=== PATIENT | female | born 1960 | race Caucasian/White ===

== ENCOUNTER 2016-05-30 21:20 | Emergency (ER) | payer OTHER ==
[~2016-05-30] VITALS: Ht 167.6 cm; Wt 85.7 kg
[~2016-05-30 21:20] MED LIST: ACETAMINOPHEN; AMLODIPINE BES2.5 M1; ASPIRIN81 M1 PO; ATROVENT HFA12.5 GM; BENAZEPRIL HYDR20 M1; CETIRIZINE HCL10 MG PO; CHOLESTEROL MEDS; CLARITIN10 MG PO; CODEINE; COLACE100 M1 PO; DITROPAN5 M1; DITROPAN5 MG PO; HYDROCODONE; LORAZEPAM1 M1 PO; LOTENSIN10 MG PO; LOW DOSE ASPIRI81 MG PO; MOBIC15 MG PO; NORCO 10/325 MG1 TAB PO; OMEPRAZOLE DR20 M1 PO; OXYBUTYNIN5 M1 PO; PEPCID20 MG PO; PRILOSEC40 MG PO; PROMETHAZINE; PROZAC20 MG PO; QVAR HFA M80 MCG/ACT PO; RANITIDINE150 M1 PO; RISPERDAL0.25 MG PO; SERTRALINE HYDR50 M1 PO; TRIAMCINOL; VICODIN-ES1 TAB PO; VITAMIN D50000 I2; ZOCOR20 MG PO; [UNRECOGNIZED DRUG - CODE] PO; [UNRECOGNIZED DRUG - REMARK]
[2016-05-30 21:22] VITALS: BP 145/80
--- NOTE | 2016-05-30 21:29 | NUR ---
AMBULATED TO ER BED 6
--- NOTE | 2016-05-30 21:44 | NUR ---
Patient being evaluated by physician at bedside.
[2016-05-30] MEDS ORDERED: DIAZEPAM 5 MG TAB PO ONE (21:50)
[2016-05-30] MEDS ORDERED: KETOROLAC 30 MG/ML VIAL IM ONE (21:50)
--- NOTE | 2016-05-30 21:51 | NUR ---
PATIENT PRESENTS TO ED WITH rt sided pain, generalized pain, 10/10 . PT DENIES N/V/D; SKIN IS PINK/WARM/DRY; AAOX4 WITH EVEN AND STEADY GAIT; LUNGS CLEAR BL; HR EVEN AND REGULAR; PT DENIES ANY FEVER, CP, SOB, OR COUGH AT THIS TIME; PATIENT STATES PAIN OF 10/10 AT THIS TIME; VSS; PATIENT POSITIONED FOR COMFORT; HOB ELEVATED; BEDRAILS UP X2; BED DOWN. ER MD MADE AWARE OF PT STATUS.
--- NOTE | 2016-05-30 22:03 | NUR ---
pt to xray via wc in stable condition
--- NOTE | 2016-05-30 22:22 | NUR ---
PT RETURNED FROM CT IN STABLE CONDITION
--- NOTE | 2016-05-30 22:53 | NUR ---
Patient discharged with v/s stable. Written and verbal after care instructions given and explained. Patient alert, oriented and verbalized understanding of instructions. Ambulatory with steady gait. All questions addressed prior to discharge. ID band removed. Patient advised to follow up with PMD. Rx of NAPROSYN AND VALIUM given. Patient educated on indication of medication including possible reaction and side effects. Opportunity to ask questions provided and answered.
[2016-05-30 22:54] VITALS: BP 139/76
== END 2016-05-30 22:54 | disposition home or self-care (01) ==
LOC: MED 21:20
DX: S46.811A Strain of other muscles, fascia and tendons at shoulder and upper arm level, right arm, initial encounter (principal); J45.909 Unspecified asthma, uncomplicated; K21.9 Gastro-esophageal reflux disease without esophagitis; I11.0 Hypertensive heart disease with heart failure; M19.90 Unspecified osteoarthritis, unspecified site; I50.9 Heart failure, unspecified; Z79.899 Other long term (current) drug therapy; Z98.890 Other specified postprocedural states; W18.39XA Other fall on same level, initial encounter; Y93.89 Activity, other specified; Y92.89 Other specified places as the place of occurrence of the external cause; Y99.8 Other external cause status
CPT/HCPCS: 73030; 96372; 99284; J1885

== ENCOUNTER 2016-08-01 23:10 | Emergency (ER) | payer OTHER ==
[~2016-08-01] VITALS: Ht 165.1 cm; Wt 84.4 kg
[2016-08-01 23:15] VITALS: BP 131/88
--- NOTE | 2016-08-01 23:42 | NUR ---
PT TAKEN TO OF Addendum: 08/01/16 at 2350 by EMELI PT TAKEN TO [facility]
--- NOTE | 2016-08-02 00:10 | NUR ---
Dr. Chambers evaluating patient
[2016-08-02 00:30] VITALS: BP 127/75
--- NOTE | 2016-08-02 00:30 | NUR ---
Patient discharged with v/s stable. Written and verbal after care instructions given and explained. Patient alert, oriented and verbalized understanding of instructions. Ambulatory with steady gait. All questions addressed prior to discharge. ID band removed. Patient advised to follow up with PMD. Rx of Acyclovir given. Patient educated on indication of medication including possible reaction and side effects. Opportunity to ask questions provided and answered.
== END 2016-08-02 00:30 | disposition home or self-care (01) ==
LOC: MED 23:10
DX: B00.1 Herpesviral vesicular dermatitis (principal); M54.5 Low back pain; G89.29 Other chronic pain; J45.909 Unspecified asthma, uncomplicated; I50.9 Heart failure, unspecified; K21.9 Gastro-esophageal reflux disease without esophagitis; I10 Essential (primary) hypertension; F41.9 Anxiety disorder, unspecified; Z87.891 Personal history of nicotine dependence

== ENCOUNTER 2016-08-07 04:30 | Emergency (ER) | payer OTHER ==
[~2016-08-07] VITALS: Ht 165.1 cm; Wt 75.7 kg
[~2016-08-07 04:30] MED LIST changes: -ACETAMINOPHEN; -AMLODIPINE BES2.5 M1; +ASPI81EC PO; -ASPIRIN81 M1 PO; -ATROVENT HFA12.5 GM; +BECL0.089 PO; +BENA20TA5; -BENAZEPRIL HYDR20 M1; -CETIRIZINE HCL10 MG PO; -CHOLESTEROL MEDS; -CLARITIN10 MG PO; -CODEINE; -COLACE100 M1 PO; -DITROPAN5 M1; -DITROPAN5 MG PO; +DOCU-67 PO; +HYDR-4452 PO; -HYDROCODONE; +LORA1TAB7 PO; -LORAZEPAM1 M1 PO; -LOTENSIN10 MG PO; -LOW DOSE ASPIRI81 MG PO; +MELO15TA11 PO; -MOBIC15 MG PO; -NORCO 10/325 MG1 TAB PO; +OMEP20EC6 PO; -OMEPRAZOLE DR20 M1 PO; -OXYBUTYNIN5 M1 PO; -PEPCID20 MG PO; -PRILOSEC40 MG PO; -PROMETHAZINE; -PROZAC20 MG PO; -QVAR HFA M80 MCG/ACT PO; +RANI150T8 PO; -RANITIDINE150 M1 PO; +RISP0.251 PO; -RISPERDAL0.25 MG PO; +SERT50TA PO; -SERTRALINE HYDR50 M1 PO; -TRIAMCINOL; -VICODIN-ES1 TAB PO; -VITAMIN D50000 I2; -ZOCOR20 MG PO; +[UNRECOGNIZED DRUG - CODE] PO; +[UNRECOGNIZED DRUG - CODE] PO; -[UNRECOGNIZED DRUG - CODE] PO; -[UNRECOGNIZED DRUG - REMARK]
[2016-08-07 04:33] VITALS: BP 144/87
--- NOTE | 2016-08-07 04:42 | NUR ---
PT TAKEN TO BED 5
--- NOTE | 2016-08-07 04:50 | NUR ---
Dr. Roth evaluating patient at bedside.
--- NOTE | 2016-08-07 04:57 | NUR ---
55Y/F PATIENT PRESENTS TO ED WITH C/O BODY ACHE. PT STATES FELL AND ROLL, ALL BODY ACHING, NO LOC, NO APPARENT INJURY . DENIES N/V/D; SKIN IS PINK/WARM/DRY; AAOX4 WITH EVEN AND STEADY GAIT; LUNGS CLEAR BL; HR EVEN AND REGULAR; PT DENIES ANY FEVER, CP, SOB, OR COUGH AT THIS TIME; PATIENT STATES PAIN OF 10/10 AT THIS TIME; VSS; PATIENT POSITIONED FOR COMFORT; HOB ELEVATED; BEDRAILS UP X2; BED DOWN. ER MD MADE AWARE OF PT STATUS.
[2016-08-07 05:12] VITALS: BP 137/82
--- NOTE | 2016-08-07 05:12 | NUR ---
Patient discharged with v/s stable. Written and verbal after care instructions given and explained. Patient verbalized understanding. Ambulatory with steady gait. All questions addressed prior to discharge. Advised to follow up with PMD.
== END 2016-08-07 05:12 | disposition home or self-care (01) ==
LOC: MED 04:30
DX: S09.90XA Unspecified injury of head, initial encounter (principal); F17.210 Nicotine dependence, cigarettes, uncomplicated; J45.909 Unspecified asthma, uncomplicated; K21.9 Gastro-esophageal reflux disease without esophagitis; I50.9 Heart failure, unspecified; I11.0 Hypertensive heart disease with heart failure; W01.0XXA Fall on same level from slipping, tripping and stumbling without subsequent striking against object, initial encounter; Y93.89 Activity, other specified; Y92.833 Campsite as the place of occurrence of the external cause; Y99.8 Other external cause status
CPT/HCPCS: 99283

== ENCOUNTER 2016-08-16 07:18 | Emergency (ER) | payer OTHER ==
[~2016-08-16] VITALS: Ht 167.6 cm; Wt 84.4 kg
[2016-08-16 07:30] VITALS: BP 134/92
--- NOTE | 2016-08-16 07:33 | NUR ---
Patient ambulated to bed 7. RN evaluating patient at bedside.
--- NOTE | 2016-08-16 07:34 | NUR ---
55/F BIB SELF C/O LOBO FOOT PAIN R/T BLISTERS X2 WEEKS DENIES N/V/D; BOTH FOOT SWELLING & BLISTER NOTED AT THIS TIME. AAOX4 WITH EVEN AND UNSTEADY GAIT; LUNGS CLEAR BL; HR EVEN AND REGULAR; PT DENIES ANY FEVER, CP, SOB, OR COUGH AT THIS TIME; PATIENT STATES PAIN OF 10/10 AT THIS TIME; VSS; PATIENT POSITIONED FOR COMFORT; HOB ELEVATED; BEDRAILS UP X2; BED DOWN. ER MD MADE AWARE OF PT STATUS.
[2016-08-16] MEDS ORDERED: NEOMYCIN/POLYMYXIN/BACITRACIN OPTH OINT 3.5 GM TUBE OP SCH (07:45)
[2016-08-16] MEDS ORDERED: NEOMYCIN/POLYMYXIN/BACITRACIN 0.9 GM/1 PKT TP ONE (07:54)
[2016-08-16 08:41] VITALS: BP 114/74
--- NOTE | 2016-08-16 08:41 | NUR ---
Patient discharged with v/s stable. Written and verbal after care instructions given and explained. Patient alert, oriented and verbalized understanding of instructions. Ambulatory with steady gait. All questions addressed prior to discharge. ID band removed. Patient advised to follow up with PMD. Rx of ALEVE& ALBUTEROL given. Patient educated on indication of medication including possible reaction and side effects. Opportunity to ask questions provided and answered.
== END 2016-08-16 08:41 | disposition home or self-care (01) ==
LOC: MED 07:18
DX: S90.821A Blister (nonthermal), right foot, initial encounter (principal); J45.909 Unspecified asthma, uncomplicated; K21.9 Gastro-esophageal reflux disease without esophagitis; I11.0 Hypertensive heart disease with heart failure; I50.9 Heart failure, unspecified; Z79.82 Long term (current) use of aspirin; Z79.899 Other long term (current) drug therapy; X58.XXXA Exposure to other specified factors, initial encounter; Y93.01 Activity, walking, marching and hiking; Y92.89 Other specified places as the place of occurrence of the external cause; Y99.8 Other external cause status
CPT/HCPCS: 99283

== ENCOUNTER 2016-08-16 23:15 | Emergency (ER) | payer OTHER ==
[~2016-08-16] VITALS: Ht 167.6 cm; Wt 84.8 kg
--- NOTE | 2016-08-16 23:15 | NUR ---
BIBA TO ER
[2016-08-16 23:24] VITALS: BP 145/82
--- NOTE | 2016-08-16 23:53 | NUR ---
TO LAURIE FONSECA
[2016-08-16 23:54] LABS: BASOPHILS # (AUTO) 0.3 K/uL (0.00-0.22); BASOPHILS % (AUTO) 3.3 % (0.0-2.0); EOSINOPHILS # (AUTO) 0.4 K/uL (0-0.4); EOSINOPHILS % (AUTO) 4.6 % (0.0-4.0); HEMATOCRIT 36.2 % (36-48); LYMPHOCYTES # (AUTO) 2.6 K/uL (2.5-16.5); LYMPHOCYTES % (AUTO) 33.6 % (20.5-51.1); MEAN CORPUSCULAR HEMOGLOBIN 29 pg (27-31); MEAN CORPUSCULAR HGB CONC 33 g/dL (33-37); MEAN CORPUSCULAR VOLUME 87 fL (80-94); MONOCYTES # (AUTO) 0.7 K/uL (0.8-1.0); MONOCYTES % (AUTO) 9.2 % (1.7-9.3); NEUTROPHILS # (AUTO) 3.6 K/uL (1.8-7.7); NEUTROPHILS % (AUTO) 49.3 % (42.2-75.2); PLATELET COUNT (AUTO) 284 K/uL (140-450); RED BLOOD CELL COUNT(AUTO) 4.15 MIL/uL (4.20-5.40); RED CELL DISTRIBUTION WIDTH 13.1 % (11.6-13.7); WHITE BLOOD COUNT (AUTO) 7.6 K/uL (4.8-10.8)
--- NOTE | 2016-08-16 23:55 | NUR ---
Иван hendricks in [facility] - 08/16/16 at 2357 by MEDDM [id number]
[2016-08-17 00:10] LABS: ALBUMIN 3.9 g/dL (3.4-5.0); ANION GAP 9.4 (8-16); CALCIUM 8.6 mg/dL (8.5-10.1); CARBON DIOXIDE 28.6 mmol/L (21-32); CREATININE 0.8 mg/dL (0.6-1.3); TOTAL BILIRUBIN 0.4 mg/dL (0.0-1.0); TOTAL PROTEIN, SERUM 7.5 g/dL (6.4-8.2)
[2016-08-17 00:18] LABS: INR 1.1 (0.8-1.2); PARTIAL THROMBOPLASTIN TIME 24.7 secs (22-35.6); PROTHROMBIN TIME 10.4 secs (10.8-13.4)
--- NOTE | 2016-08-17 02:17 | NUR ---
BIB WHEELCHAIR TO ER BED 8
[2016-08-17] MEDS ORDERED: POTASSIUM CHLORIDE 10 MEQ TABER PO ONE (02:30)
--- NOTE | 2016-08-17 02:30 | NUR ---
55 YO FEMALE PATIENT PRESENTS TO ED WITH RT FOOT PAIN . DENIES N/V/D; SKIN IS PINK/WARM/DRY; AAOX4 WITH EVEN AND STEADY GAIT; LUNGS CLEAR BL; HR EVEN AND REGULAR; PT DENIES ANY FEVER, CP, SOB, OR COUGH AT THIS TIME; PATIENT STATES PAIN OF 10/10 AT THIS TIME; VSS; PATIENT POSITIONED FOR COMFORT; HOB ELEVATED; BEDRAILS UP X2; BED DOWN. ER MD MADE AWARE OF PT STATUS.
[2016-08-17 05:00] VITALS: BP 145/82
== END 2016-08-17 03:40 | disposition home or self-care (01) ==
LOC: MED 23:15
DX: R60.0 Localized edema (principal); I10 Essential (primary) hypertension; J45.909 Unspecified asthma, uncomplicated; I50.9 Heart failure, unspecified; K21.9 Gastro-esophageal reflux disease without esophagitis; Z88.6 Allergy status to analgesic agent
CPT/HCPCS: 36415; 73630; 80053; 85025; 85610; 85730; 93005; 99285

== ENCOUNTER 2016-11-01 23:25 | Emergency (ER) | payer OTHER ==
[~2016-11-01] VITALS: Ht 165.1 cm; Wt 83.0 kg
[2016-11-01 23:39] VITALS: BP 116/82
--- NOTE | 2016-11-02 00:44 | NUR ---
TO ER OF2
--- NOTE | 2016-11-02 01:00 | NUR ---
Patient being evaluated by physician.
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
--- NOTE | 2016-11-02 01:30 | NUR ---
Patient discharged with v/s stable. Written and verbal after care instructions given and explained. Patient alert, oriented and verbalized understanding of instructions. Ambulatory with steady gait. All questions addressed prior to discharge. ID band removed. Patient advised to follow up with PMD. Rx of LASIX 20 MG given. Patient educated on indication of medication including possible reaction and side effects. Opportunity to ask questions provided and answered.
[2016-11-02 01:31] VITALS: BP 125/76
== END 2016-11-02 01:30 | disposition home or self-care (01) ==
LOC: MED 23:25
DX: R60.0 Localized edema (principal); J45.909 Unspecified asthma, uncomplicated; I50.9 Heart failure, unspecified; K21.9 Gastro-esophageal reflux disease without esophagitis; I10 Essential (primary) hypertension; Z79.899 Other long term (current) drug therapy; Z88.5 Allergy status to narcotic agent
CPT/HCPCS: 99283

== ENCOUNTER 2016-11-03 05:25 | Emergency (ER) | payer OTHER ==
[~2016-11-03] VITALS: Ht 167.6 cm; Wt 82.6 kg
[2016-11-03 05:36] VITALS: BP 155/90
--- NOTE | 2016-11-03 05:42 | NUR ---
Patient ambulated to bed 03.
--- NOTE | 2016-11-03 05:45 | NUR ---
PATIENT PRESENTS TO ED WITH BOTH FOOT PAIN ,SWELLING, FOR 8 DAYS . PT DENIES N/V/D; SKIN IS PINK/WARM/DRY; AAOX4 WITH EVEN AND STEADY GAIT; LUNGS CLEAR BL; HR EVEN AND REGULAR; PT DENIES ANY FEVER, CP, SOB, OR COUGH AT THIS TIME; PATIENT STATES PAIN OF 8/10 AT THIS TIME; VSS; PATIENT POSITIONED FOR COMFORT; HOB ELEVATED; BEDRAILS UP X2; BED DOWN. ER MD MADE AWARE OF PT STATUS.
--- NOTE | 2016-11-03 06:00 | NUR ---
Patient being evaluated by physician DR CHEATHAM at bedside.
[2016-11-03 06:45] VITALS: BP 140/87
== END 2016-11-03 06:43 | disposition home or self-care (01) ==
LOC: MED 05:25
DX: R60.0 Localized edema (principal); I11.0 Hypertensive heart disease with heart failure; J45.909 Unspecified asthma, uncomplicated; I50.9 Heart failure, unspecified; K21.9 Gastro-esophageal reflux disease without esophagitis; Z88.6 Allergy status to analgesic agent; Z79.899 Other long term (current) drug therapy
CPT/HCPCS: 99283

== ENCOUNTER 2016-11-05 01:10 | Emergency (ER) | payer OTHER ==
[~2016-11-05] VITALS: Ht 167.6 cm; Wt 82.6 kg
[2016-11-05 01:31] VITALS: BP 161/112
[2016-11-05 02:14] LABS: BASOPHILS # (AUTO) 0.3 K/uL (0.00-0.22); BASOPHILS % (AUTO) 3.3 % (0.0-2.0); EOSINOPHILS # (AUTO) 0.3 K/uL (0-0.4); EOSINOPHILS % (AUTO) 3.3 % (0.0-4.0); HEMATOCRIT 37.3 % (36-48); HEMOGLOBIN 12.3 g/dL (12.0-16.0); LYMPHOCYTES # (AUTO) 2.7 K/uL (2.5-16.5); LYMPHOCYTES % (AUTO) 30.5 % (20.5-51.1); MEAN CORPUSCULAR HEMOGLOBIN 29 pg (27-31); MEAN CORPUSCULAR HGB CONC 33 g/dL (33-37); MEAN CORPUSCULAR VOLUME 88 fL (80-94); MONOCYTES # (AUTO) 0.7 K/uL (0.8-1.0); MONOCYTES % (AUTO) 7.6 % (1.7-9.3); NEUTROPHILS # (AUTO) 4.8 K/uL (1.8-7.7); NEUTROPHILS % (AUTO) 55.3 % (42.2-75.2); PLATELET COUNT (AUTO) 305 K/uL (140-450); RED BLOOD CELL COUNT(AUTO) 4.25 MIL/uL (4.20-5.40); RED CELL DISTRIBUTION WIDTH 13.4 % (11.6-13.7); WHITE BLOOD COUNT (AUTO) 8.8 K/uL (4.8-10.8)
[2016-11-05 02:23] LABS: ANION GAP 9.6 (8-16); CALCIUM 8.8 mg/dL (8.5-10.1); CARBON DIOXIDE 28.2 mmol/L (21-32); CREATININE 0.7 mg/dL (0.6-1.3); POTASSIUM 3.8 mmol/L (3.5-5.1)
[2016-11-05 02:29] LABS: ALBUMIN 3.7 g/dL (3.4-5.0); TOTAL BILIRUBIN 0.3 mg/dL (0.0-1.0); TOTAL PROTEIN, SERUM 7.5 g/dL (6.4-8.2)
[2016-11-05 04:45] VITALS: BP 137/76
== END 2016-11-05 04:45 | disposition home or self-care (01) ==
LOC: MED 01:10
DX: R22.43 Localized swelling, mass and lump, lower limb, bilateral (principal); I11.0 Hypertensive heart disease with heart failure; J45.909 Unspecified asthma, uncomplicated; Y92.89 Other specified places as the place of occurrence of the external cause; K59.00 Constipation, unspecified; M19.90 Unspecified osteoarthritis, unspecified site; T46.5X5A Adverse effect of other antihypertensive drugs, initial encounter; Z79.899 Other long term (current) drug therapy; Z88.5 Allergy status to narcotic agent
CPT/HCPCS: 36415; 71010; 80053; 83880; 85025; 87040; 99285; Q0092

== ENCOUNTER 2017-01-25 10:32 | Emergency (ER) | payer OTHER ==
[~2017-01-25] VITALS: Ht 172.7 cm; Wt 81.6 kg
[~2017-01-25 10:32] MED LIST changes: +ACET-787 PO; +CETI10TA71 PO; +DOCU-299 PO; -DOCU-67 PO; -HYDR-4452 PO; +OXYB5TAB21 PO; -[UNRECOGNIZED DRUG - CODE] PO; -[UNRECOGNIZED DRUG - CODE] PO
--- NOTE | 2017-01-25 10:36 | NUR ---
PT BIBA TO BED 9.
--- NOTE | 2017-01-25 10:37 | NUR ---
56 /F BIBA FROM FIELD FOR GENERAL WEAKNESS. AWAKE AND ALERT ON ARRIVAL.PT STS BACK PAIN & L LEG SWEELING X 3 MO. AAOX4 WITH EVEN AND STEADY GAIT; LUNGS CLEAR BL. PT DENIES ANY FEVER, CP, SOB, OR COUGH AT THIS TIME; PATIENT STATES PAIN OF 5/10 AT THIS TIME; PATIENT POSITIONED FOR COMFORT; HOB ELEVATED; BEDRAILS UP X2; BED DOWN. ER MD MADE AWARE OF PT STATUS.
--- NOTE | 2017-01-25 10:37 | NUR ---
Patient being evaluated by DR ROBISON at bedside.
[2017-01-25 10:38] VITALS: BP 138/100
[2017-01-25] MEDS ORDERED: NACL 0.9% 1,000 ML IV ONE (10:45)
[2017-01-25 11:04] LABS: BARBITURATE, URINE NEG. ng/ml (NEG <=200); BENZODIAZEPINE, URINE NEG. ng/mL (NEG <=200); CANNABINOID, URINE NEG. ng/mL (NEG <=50); COCAINE, URINE NEG. ng/mL (NEG <=300); OPIATE, URINE NEG. ng/mL (NEG <=2000); PHENCYCLIDINE SCREEN,URINE NEG. ng/mL (NEG <=25)
[2017-01-25 11:25] LABS: APPEARANCE,URINE CLEAR (CLEAR); BILIRUBIN,URINE NEGATIVE (NEGATIVE); BLOOD, URINE NEGATIVE (NEGATIVE); COLOR,URINE YELLOW (YELLOW); LEUKOCYTE ESTERASE ,URINE NEGATIVE (NEGATIVE); NITRITE, URINE NEGATIVE (NEGATIVE); UGLUCOSE NEGATIVE (NEGATIVE)
[2017-01-25 13:13] VITALS: BP 128/89
== END 2017-01-25 13:13 | disposition home or self-care (01) ==
LOC: MED 10:32
DX: K59.00 Constipation, unspecified (principal); J45.909 Unspecified asthma, uncomplicated; J44.9 Chronic obstructive pulmonary disease, unspecified; K21.9 Gastro-esophageal reflux disease without esophagitis; I10 Essential (primary) hypertension; Z88.5 Allergy status to narcotic agent; Z90.89 Acquired absence of other organs
CPT/HCPCS: 74176; 80305; 81003; 81025; 96360; 99285; J7030

== ENCOUNTER 2017-01-27 03:00 | Inpatient (IN) | payer OTHER ==
[~2017-01-27] VITALS: Ht 167.6 cm; Wt 85.7 kg
[2017-01-27 03:07] VITALS: BP 109/64
--- NOTE | 2017-01-27 03:14 | NUR ---
PT TAKEN TO BED 8
--- NOTE | 2017-01-27 03:24 | NUR ---
56Y F BIB SELF C/O AB PAIN RADIATING TO THE BACK X 2 WEEK. PT DENIES ANY TRAUMA TO THE AREA. PT STATES SHE WAS WALKING 2-3 MILES EARLIER TODAY AND STATES THE PAIN HAS GOTTEN PROGRESSIVELY WORSE AND STATES SHE HAS BEEN NAUSEATED AND VOMITING. PT STATES PAIN IS SHARP AND BURNING. PT DENIES ANY SOB OR CP AT THE MOMENT. PT IS AAOX4, BREATHING IS EVEN AND UNLABORED. PT AMBULATED TO ER BED WITH STEADY DICKENS.
--- NOTE | 2017-01-27 03:43 | NUR ---
Dr. Obando evaluating patient at bedside.
--- NOTE | 2017-01-27 03:54 | NUR ---
FLEETS ENEMA GIVEN BY LIZY FINCH AT THIS TIME. PATIENT TOLERATED WELL.
--- NOTE | 2017-01-27 05:03 | NUR ---
PT TAKEN TO CT
[2017-01-27] MEDS ORDERED: MORPHINE SULFATE 2 MG/ML SYR IVP PRN (06:05)
[2017-01-27] MEDS ORDERED: ONDANSETRON 4 MG/2 ML VIAL IVP PRN (06:05)
[2017-01-27] MEDS ORDERED: LORazepam 2 MG/ML VIAL IVP PRN (06:05)
[2017-01-27] MEDS ORDERED: NACL 0.9% 1,000 ML IV ONE (06:10)
--- NOTE | 2017-01-27 06:18 | NUR ---
Patient will be admitted to care of DR MCKEON. Admited to MS . Will go to room MS 106B. Belongings list completed. Report to JUDITH MEDEL.
[2017-01-27 06:24] VITALS: BP 123/73
--- NOTE | 2017-01-27 06:24 | NUR ---
Admitted from ER, with chief complaint of ABD PAIN AND LOW BACK PAIN, DX ILEUS. 56 y/o, Female, AOX4, AMBULATORY, ABLE TO VERBALIZE NEEDS, PT RESTING IN BED. PT DENIES CHEST PAIN, SOB OR S/S OF ACUTE DISTRESS. PT C/O LOWER ABD PAIN THAT RADIATES TO BACK. PT REPORTS HAVING BM YESTERDAY. IV ACCESS ASYMPTOMATIC, PATENT AND INTACT. NS BOLUS FROM ER IS STILL RUNNING. DISCUSSED AND REVIEWED PLAN OF CARE WITH PT. PT VERBALIZE UNDERSTANDING. oriented to call light, bed, phone,television, bathroom, smoking policy, visiting hours, procedures, ID bracelet on. Belongings list checked. ALL NEEDS MET. SAFETY MEASURES ENSURED. CALL LIGHT WITHIN REACH. WILL CONTINUE TO MONITOR. WILL ENDORSE TO AM NURSE TO FINISH ADMISSION PROCESS.
[2017-01-27 06:26] LABS: BILIRUBIN,URINE NEGATIVE (NEGATIVE); BLOOD, URINE NEGATIVE (NEGATIVE); COLOR,URINE YELLOW (YELLOW); LEUKOCYTE ESTERASE ,URINE NEGATIVE (NEGATIVE); NITRITE, URINE NEGATIVE (NEGATIVE); PH,URINE 5.5 (5.0-9.0); UGLUCOSE NEGATIVE (NEGATIVE)
[2017-01-27 06:27] LABS: BASOPHILS # (AUTO) 0.2 K/uL (0.00-0.22); BASOPHILS % (AUTO) 2.3 % (0.0-2.0); EOSINOPHILS # (AUTO) 0.1 K/uL (0-0.4); EOSINOPHILS % (AUTO) 1.5 % (0.0-4.0); HEMATOCRIT 40.9 % (36-48); HEMOGLOBIN 13.2 g/dL (12.0-16.0); LYMPHOCYTES # (AUTO) 2.2 K/uL (2.5-16.5); LYMPHOCYTES % (AUTO) 23.3 % (20.5-51.1); MEAN CORPUSCULAR HEMOGLOBIN 28 pg (27-31); MEAN CORPUSCULAR HGB CONC 32 g/dL (33-37); MEAN CORPUSCULAR VOLUME 86 fL (80-94); MONOCYTES # (AUTO) 0.8 K/uL (0.8-1.0); MONOCYTES % (AUTO) 8.3 % (1.7-9.3); NEUTROPHILS % (AUTO) 64.6 % (42.2-75.2); PLATELET COUNT (AUTO) 336 K/uL (140-450); RED BLOOD CELL COUNT(AUTO) 4.76 MIL/uL (4.20-5.40); RED CELL DISTRIBUTION WIDTH 13.5 % (11.6-13.7); WHITE BLOOD COUNT (AUTO) 9.3 K/uL (4.8-10.8)
[2017-01-27] MEDS: NACL 0.9% 1,000 ML IV SCH ×3 (06:40→16:03)
[2017-01-27 06:53] LABS: ANION GAP 11.9 (8-16); CARBON DIOXIDE 30.7 mmol/L (21-32); CREATININE 0.7 mg/dL (0.6-1.3); POTASSIUM 3.6 mmol/L (3.5-5.1)
[2017-01-27] MEDS ORDERED: DEXTROSE 50% 50 ML SYR IVP ONE (06:54)
[2017-01-27 07:00] LABS: ALBUMIN 4.2 g/dL (3.4-5.0); TOTAL BILIRUBIN 0.5 mg/dL (0.0-1.0)
--- NOTE | 2017-01-27 07:15 | NUR ---
ENDORSED PLAN OF CARE TO AM NURSE. CONDITION STABLE.
--- NOTE | 2017-01-27 07:16 | NUR ---
RECEIVED PT FROM THE COLLECTION ANALYST NURSE AT BEDSIDE FOR CONTINUITY OF CARE. PT IS AWAKE AND ALERT AND ORIENTED. INTRODUCED MYSELF AND UPDATED THE BOARD. PT IS C/O SOME ABD PAIN, BACK PAIN, AND KNEE PAIN. PT'S SKIN IS INTACT. PT IS AMBULATORY. LAST BM YESTERDAY. IV ON R AC 20G AT NS BOLUS, JUST FINISHING UP. SWITCHED OVER TO 100ML/HR. PT REQUESTING PNA VAC AT D/C. WILL CONTINUE WITH ADMISSION.
[2017-01-27 07:59] LABS: APPEARANCE,URINE SLIGHTLY HAZY (CLEAR)
[2017-01-27 08:00] VITALS: BP 114/80
[2017-01-27 08:00] LABS: RBC,URINE NONE SEEN /HPF (0-5); WBC,URINE 0-5 (RARE) /HPF (0-5)
--- NOTE | 2017-01-27 08:00 | NUR ---
V/S WITHIN NORMAL RANGE. ASSISTED PT TO AMBULATE TO THE BATHROOM. PT NOW BACK IN BED. C/O BEING COLD, GOT HER A WARM BLANKET. MET ALL NEEDS AT THIS TIME. WILL CONTINUE TO MONITOR PT.
--- NOTE | 2017-01-27 08:16 | NUR ---
XRAY HERE TO TAKE PT FOR HER LUMBAR SERIES. DISCONNECTED IV. PT WHEELED OUT IN WHEEL CHAIR.
--- NOTE | 2017-01-27 08:17 | NUR ---
CM NOTE INITIAL REVIEW FAXED TO [facility] [phone] SLIM ESCALANTEA # [phone]
--- NOTE | 2017-01-27 08:33 | NUR ---
PT RETURNED FROM CXRAY.
[2017-01-27] MEDS ORDERED: PANTOPRAZOLE 40 MG TABEC PO SCH (08:55)
[2017-01-27] MEDS ORDERED: ENOXAPARIN 40 MG/0.4 ML SYR SUBQ SCH (09:00)
[2017-01-27] MEDS ORDERED: DOCUSATE SODIUM 100 MG GELCAP PO SCH (09:00)
--- NOTE | 2017-01-27 09:00 | NUR ---
DR PERRY HERE AND SAW PT. PER , PT CAN GO HOME LATER IN THE DAY ONCE SHE TOLERATES FOOD AND HAS A BM AND AMBULATING WELL.
--- NOTE | 2017-01-27 09:09 | NUR ---
ADMINISTERED MORNING MEDS. PT TOLERATED. RECONNECTED THE IVF. WILL CONTINUE TO MONITOR PT.
--- NOTE | 2017-01-27 10:55 | NUR ---
PT RESTING COMFORTABLY. NO SIGNS OF DISTRESS. WILL CONTINUE TO MONITOR PT.
--- NOTE | 2017-01-27 12:00 | NUR ---
SPOKE TO PT RE D/C AND TRANSPORTATION. SHE STATES THAT HER DAUGHTER WILL BE HERE BETWEEN 3-4 PM. WILL ORGANIZE THE D/C AROUND THAT TIME.
--- NOTE | 2017-01-27 14:58 | NUR ---
PT TRYING TO GET A HOLD OF DAUGHTER TO PICK HER UP. NOT SUCCESSFUL. SPOKE TO SON, NOT ABLE TO PICK HER UP. SPOKE TO OTHER DAUGHTER. NO CAR. LEFT MESSAGE FOR LAN, DAUGHTER. WE WILL WAIT FOR HER RETURN CALL. PT WANTED TO TAKE A SHOWER. WRAPPED HER IV SITE AND GAVE HER TOWELS, SOAP, AND NEW GOWN. CHANGED HER LINENS. ACCOMPANIED HER TO THE SHOWERS. STEADY GAIT.
--- NOTE | 2017-01-27 15:30 | NUR ---
SPOKE TO DR. PERRY. NOTIFIED HIM PT IS EATING, HAD A BM, AND HAD A SHOWER. SHE IS AMBULATING WELL. DR PERRY AGREES SHE NEEDS TO BE D/C'D. WILL CONTINUE TO ATTEMPT TO CONTACT DAUGHTER TO PICK HER UP, IF NOT, PT STATES SHE WILL WALK HOME. WILL START D/C.
[2017-01-27 16:00] VITALS: BP 145/93
--- NOTE | 2017-01-27 16:20 | NUR ---
WENT OVER DC INSTRUCTIONS WITH PT. PT VERBALIZED UNDERSTANDING. REMOVED IV, CANNULA INTACT. NO BLEEDING NOTED. REMOVED ID BANDS. PT IS IN STABLE CONDITION. JUST ATE A SANDWICH WITH 2 JUICE BOXES. PT IS ALL DRESSED IN PERSONAL CLOTHES AND ALL PERSONAL BELONGINGS ARE PACKED. DISCUSSED WITH PT WHERE SHE WAS GOING TO GO, IF HER DAUGHTER DOESN'T COME. SHE STATED SHE WOULD LIKE TO TAKE A BUS TO [place]. SPOKE TO RN BSN. GOT HER 2 BUS PASSES. SHE WILL WAIT A LITTLE WHILE LONGER AND HEAD OUT. I WILL AWAIT DAUGHTER'S CALL.
--- NOTE | 2017-01-27 17:05 | NUR ---
PATIENT READY TO LEAVE. ASSISTED LIVING HOME DIRECTOR WALKED PT OUT INTO THE LOBBY. PT STATES SHE WILL WALK TO A BUS STOP. PT IS IN STABLE CONDITION.
[2017-01-28] MEDS ORDERED: PANTOPRAZOLE 40 MG TABEC PO SCH (06:30)
== END 2017-01-27 17:05 | disposition home or self-care (01) | DRG 247 ==
LOC: MED 03:00 → MTU 06:06
PROVIDERS: ADMIT Hospitalist; ATTEND Hospitalist
DX: K56.7 Ileus, unspecified (principal); I11.0 Hypertensive heart disease with heart failure; I50.9 Heart failure, unspecified; K59.00 Constipation, unspecified; J44.9 Chronic obstructive pulmonary disease, unspecified; K21.9 Gastro-esophageal reflux disease without esophagitis; F41.9 Anxiety disorder, unspecified; Z90.49 Acquired absence of other specified parts of digestive tract; Z88.5 Allergy status to narcotic agent; Z88.6 Allergy status to analgesic agent; Z79.899 Other long term (current) drug therapy
CPT/HCPCS: 36415; 72100; 80053; 81001; 83690; 85025; 87081; 87086; 99285; J1650; J7030

== ENCOUNTER 2017-01-29 21:08 | Emergency (ER) | payer OTHER ==
[~2017-01-29] VITALS: Ht 167.6 cm; Wt 80.8 kg
[2017-01-29 21:25] VITALS: BP 113/84
--- NOTE | 2017-01-30 00:05 | NUR ---
PT TAKEN TO BED 6
--- NOTE | 2017-01-30 00:10 | NUR ---
Dr. Nair evaluating patient at bedside.
--- NOTE | 2017-01-30 00:10 | NUR ---
PATIENT IS A 56 Y/O FEMALE WHO PRESENTS TO THE ED C/O URINARY BURNING. PT STATES, "I HAVEN'T BEEN ABLE TO KEEP STILL BECAUSE I HAVE BEEN GOING SO MUCH." PT REPORTS 10/10 SHARP BACK PAIN THAT DOES NOT RADIATE. PT REPORTS FREQUENT URINATION, WITH BURNING SENSATION. PT DENIES SOB, CP, REPORTS N/V/D X1 DAY. PT AAOX4, RR EVEN/UNLABORED. PT REPOSITIONED FOR COMFORT, BED IN LOWEST POSITION. ER MD DR. MACIAS NOTIFIED. WILL CONTINUE TO MONITOR.
[2017-01-30] MEDS ORDERED: diphenhydrAMINE 50 MG/ML VIAL IM ONE (00:15)
[2017-01-30 00:23] LABS: BILIRUBIN,URINE NEGATIVE (NEGATIVE); BLOOD, URINE TRACE-I (NEGATIVE); COLOR,URINE YELLOW (YELLOW); LEUKOCYTE ESTERASE ,URINE NEGATIVE (NEGATIVE); NITRITE, URINE NEGATIVE (NEGATIVE); UGLUCOSE NEGATIVE (NEGATIVE)
[2017-01-30 00:29] LABS: APPEARANCE,URINE SLIGHTLY HAZY (CLEAR)
[2017-01-30 00:37] LABS: RBC,URINE 0-5 (RARE) /HPF (0-5); WBC,URINE 0-5 (RARE) /HPF (0-5)
--- NOTE | 2017-01-30 00:58 | NUR ---
HOMELESS PACKET RESOURCE PROVIDED TO PATIENT.
[2017-01-30 00:59] VITALS: BP 121/82
[2017-02-02 07:22] LABS: CHLAMYDIA TRACHOMATIS AMP DNA Negative (Negative)
== END 2017-01-30 00:59 | disposition home or self-care (01) ==
LOC: MED 21:08
DX: R30.0 Dysuria (principal); R42 Dizziness and giddiness
CPT/HCPCS: 36415; 81001; 81025; 87086; 87491; 96372; 99284; J1200

== ENCOUNTER 2017-01-31 20:25 | Emergency (ER) | payer OTHER ==
[~2017-01-31] VITALS: Ht 167.6 cm; Wt 81.6 kg
[2017-01-31 20:37] VITALS: BP 123/71
--- NOTE | 2017-01-31 20:47 | NUR ---
PT AMBULATED TO ER BED 11
--- NOTE | 2017-01-31 20:50 | NUR ---
56/F CAME IN W C/O N/V, DIZZINESS AND FEVER OF 102.8 X TODAY. PT REPORTS SHE TOOK TYLENOL X 1 HR AGO, PT CURRENTLY AFEBRILE, VSS. DENIES CP/SOB/COUGH. ALL LUNG SOUNDS CBTA, 18RR EVEN AND UNLABORED. 90HR EVEN AND REGULAR. BS ACTIVE X 4, - TENDERNESS. REPORTED PMH: COPD, HTN. PATIENT POSITIONED FOR COMFORT; HOB ELEVATED; BEDRAILS UP X2; BED DOWN. ER MD MADE AWARE OF PT STATUS.
[2017-01-31] MEDS ORDERED: KETOROLAC 60 MG/2 ML VIAL IM ONE (21:25)
[2017-01-31 22:15] LABS: BASOPHILS # (AUTO) 0.3 K/uL (0.00-0.22); EOSINOPHILS # (AUTO) 0.2 K/uL (0-0.4); EOSINOPHILS % (AUTO) 2.5 % (0.0-4.0); HEMATOCRIT 36.1 % (36-48); HEMOGLOBIN 11.6 g/dL (12.0-16.0); LYMPHOCYTES % (AUTO) 34.9 % (20.5-51.1); MEAN CORPUSCULAR HEMOGLOBIN 28 pg (27-31); MEAN CORPUSCULAR HGB CONC 32 g/dL (33-37); MEAN CORPUSCULAR VOLUME 87 fL (80-94); MONOCYTES # (AUTO) 0.9 K/uL (0.8-1.0); NEUTROPHILS # (AUTO) 4.1 K/uL (1.8-7.7); NEUTROPHILS % (AUTO) 49.6 % (42.2-75.2); PLATELET COUNT (AUTO) 321 K/uL (140-450); RED BLOOD CELL COUNT(AUTO) 4.15 MIL/uL (4.20-5.40); RED CELL DISTRIBUTION WIDTH 13.8 % (11.6-13.7); WHITE BLOOD COUNT (AUTO) 8.5 K/uL (4.8-10.8)
--- NOTE | 2017-01-31 22:20 | NUR ---
PT RESTING COMFORTABLY ON BED, VSS, ALL NEEDS MET AT THIS TIME
[2017-01-31 22:23] LABS: ANION GAP 11.3 (8-16); CARBON DIOXIDE 27.6 mmol/L (21-32); CREATININE 0.7 mg/dL (0.6-1.3); POTASSIUM 3.9 mmol/L (3.5-5.1)
[2017-01-31 22:29] LABS: ALBUMIN 3.4 g/dL (3.4-5.0); TOTAL BILIRUBIN 0.2 mg/dL (0.0-1.0)
[2017-01-31 23:26] VITALS: BP 128/72
== END 2017-01-31 23:24 | disposition home or self-care (01) ==
LOC: MED 20:25
DX: Z00.00 Encounter for general adult medical examination without abnormal findings (principal); R42 Dizziness and giddiness; M79.1 Myalgia; R50.9 Fever, unspecified; J44.9 Chronic obstructive pulmonary disease, unspecified; K21.9 Gastro-esophageal reflux disease without esophagitis; I10 Essential (primary) hypertension; Z79.899 Other long term (current) drug therapy; Z88.5 Allergy status to narcotic agent
CPT/HCPCS: 36415; 80053; 85025; 96372; 99284; J1885

== ENCOUNTER 2017-02-06 12:38 | Emergency (ER) | payer OTHER ==
[~2017-02-06] VITALS: Ht 165.1 cm; Wt 81.4 kg
[2017-02-06 14:07] VITALS: BP 146/90
--- NOTE | 2017-02-06 16:10 | NUR ---
Patient to bed 08.
--- NOTE | 2017-02-06 16:20 | NUR ---
56/F BIB SELF C/O VAGINAL LEAKING (WATER PER PT) , VAGINAL PRESSURE, DENIES DISCHARGE OR VAG BLEEDING. BOUNCEBACK FROM THIS AM BUT FOR DIFF COMPLAINT. SEEN AT [facility] SAME COMPLAINT, ALSO JONATHAN, AND [facility] PER PT. VERBAL RANT, DENIES SI/HI AND AUDITORY/VISUAL HALLUCINATIONS. ADMITS STOPPED TAKING HER MEDICATIONS. HX DEPRESSION, SCHIZOPHRENIA-BIPOLAR, HTN. RX ASA, BENAZEPRIL, OXYBUTIN.
--- NOTE | 2017-02-06 16:38 | NUR ---
Dr. Llye evaluating patient at bedside.
--- NOTE | 2017-02-06 16:44 | NUR ---
Patient discharged with v/s stable. Written and verbal after care instructions given and explained. Patient alert, oriented and verbalized understanding of instructions. Ambulatory with steady gait. All questions addressed prior to discharge. ID band removed. Patient advised to follow up with PMD. Rx of NORCO 5-325 given. Patient educated on indication of medication including possible reaction and side effects. Opportunity to ask questions provided and answered.
[2017-02-06 16:47] VITALS: BP 122/84
== END 2017-02-06 16:44 | disposition home or self-care (01) ==
LOC: MED 12:38
DX: M54.9 Dorsalgia, unspecified (principal); J44.9 Chronic obstructive pulmonary disease, unspecified; K21.9 Gastro-esophageal reflux disease without esophagitis; I10 Essential (primary) hypertension; Z88.5 Allergy status to narcotic agent; Z79.899 Other long term (current) drug therapy
CPT/HCPCS: 99283

== ENCOUNTER 2017-02-22 08:18 | Emergency (ER) | payer OTHER ==
[~2017-02-22] VITALS: Ht 167.6 cm; Wt 85.4 kg
[2017-02-22 08:25] VITALS: BP 143/100
--- NOTE | 2017-02-22 08:30 | NUR ---
PT AMBULATED TO BED 6.
--- NOTE | 2017-02-22 08:40 | NUR ---
56F BIB SELF C/O URINARY BURNING, URINARY FREQUENCY AND URINARY RETENTION X YESTERDAY; PT STATES NO HEMATURIA AT THIS TIME; PT C/O RT UPPER ABDOMINAL PAIN, RADIATES TO BACK, 10/10 X YESTERDAY; PT C/O NAUSEA, BUT STATES NO VOMITING OR DIARRHEA AT THIS TIME; ABDOMEN SOFT, NON-TENDER, ACTIVE BOWEL SOUNDS X 4 QUADRANTS; PT AA&OX4, PERRLA, BL LUNG SOUNDS CLEAR, RR EVEN/UNLABORED, SKIN IS WARM/DRY/INTACT AT THIS TIME, STEADY GAIT; PT RESTING IN BED WITH HOB ELEVATED AND IN LOWEST POSITION; POSITIONED FOR COMFORT; ER MD MADE AWARE OF STATUS. WILL CONTINUE TO MONITOR.
--- NOTE | 2017-02-22 09:13 | NUR ---
LAURIE PARRISH PT AT BEDSIDE.
[2017-02-22 09:29] LABS: APPEARANCE,URINE HAZY (CLEAR); BILIRUBIN,URINE NEGATIVE (NEGATIVE); BLOOD, URINE TRACE-I (NEGATIVE); COLOR,URINE YELLOW (YELLOW); LEUKOCYTE ESTERASE ,URINE 1+ (NEGATIVE); NITRITE, URINE POSITIVE (NEGATIVE); UGLUCOSE NEGATIVE (NEGATIVE)
[2017-02-22 09:36] VITALS: BP 136/94
--- NOTE | 2017-02-22 09:36 | NUR ---
Patient discharged with v/s stable. Written and verbal after care instructions given and explained. Patient alert, oriented and verbalized understanding of instructions. Ambulatory with steady gait. All questions addressed prior to discharge. ID band removed. Patient advised to follow up with PMD. Rx of CEPHALEXIN 500MG CAP given. Patient educated on indication of medication including possible reaction and side effects. Opportunity to ask questions provided and answered.
[2017-02-22 09:47] LABS: RBC,URINE 0-5 (RARE) /HPF (0-5); WBC,URINE 20-60 /HPF (0-5)
== END 2017-02-22 09:36 | disposition home or self-care (01) ==
LOC: MED 08:18
DX: N39.0 Urinary tract infection, site not specified (principal); J44.9 Chronic obstructive pulmonary disease, unspecified; K21.9 Gastro-esophageal reflux disease without esophagitis; I10 Essential (primary) hypertension; Z88.5 Allergy status to narcotic agent
CPT/HCPCS: 81001; 87086; 87186; 99284

== ENCOUNTER 2017-04-14 21:47 | Emergency (ER) | payer OTHER ==
[~2017-04-14] VITALS: Ht 165.1 cm; Wt 83.9 kg
[2017-04-14 22:14] VITALS: BP 122/79
--- NOTE | 2017-04-14 22:20 | NUR ---
TO LOBBY. A/W JOVANY, ROMAN GONZALEZ NOTED
--- NOTE | 2017-04-15 00:05 | NUR ---
PT.AMBULATED TO ER BED 11
--- NOTE | 2017-04-15 00:14 | NUR ---
56Y/F PT. PRESENTS TO ED WITH C/O DIFFICULTY BREATHING X 2 DAYS. PT DENIES N/V/D; SKIN IS INTACT, PINK/WARM/DRY; AAOX4, PERRL, WITH EVEN AND STEADY GAIT; LUNGS CLEAR BL, BREATHING UNLABORED; HR EVEN AND REGULAR, BL PERIPHERAL PULSES PRESENT; BS ACTIVE X4, NO TENDERNESS TO PALPATION, NO HEPATOSPLENOMEGALLY PALPATED, RESONANT TO PERCUSSION; PT DENIES ANY FEVER, CP, SOB, OR COUGH AT THIS TIME; PT STATES 0/10 PAIN AT THIS TIME; VSS; PATIENT POSITIONED FOR COMFORT; HOB ELEVATED; BEDRAILS UP X2; BED DOWN.
[2017-04-15] MEDS ORDERED: NACL 0.9% 1,000 ML IV ONE (01:00)
[2017-04-15] MEDS ORDERED: KETOROLAC 30 MG/ML VIAL IVP ONE (01:00)
[2017-04-15 01:14] LABS: BASOPHILS # (AUTO) 0.1 K/uL (0.00-0.22); BASOPHILS % (AUTO) 1.2 % (0.0-2.0); EOSINOPHILS # (AUTO) 0.3 K/uL (0-0.4); EOSINOPHILS % (AUTO) 3.7 % (0.0-4.0); HEMATOCRIT 38.3 % (36-48); HEMOGLOBIN 12.8 g/dL (12.0-16.0); LYMPHOCYTES # (AUTO) 1.4 K/uL (2.5-16.5); LYMPHOCYTES % (AUTO) 19.5 % (20.5-51.1); MEAN CORPUSCULAR HEMOGLOBIN 29 pg (27-31); MEAN CORPUSCULAR HGB CONC 34 g/dL (33-37); MEAN CORPUSCULAR VOLUME 85 fL (80-94); MONOCYTES # (AUTO) 0.6 K/uL (0.8-1.0); MONOCYTES % (AUTO) 8.7 % (1.7-9.3); NEUTROPHILS # (AUTO) 4.7 K/uL (1.8-7.7); NEUTROPHILS % (AUTO) 66.9 % (42.2-75.2); PLATELET COUNT (AUTO) 228 K/uL (140-450); RED CELL DISTRIBUTION WIDTH 13.2 % (11.6-13.7); WHITE BLOOD COUNT (AUTO) 7.1 K/uL (4.8-10.8)
[2017-04-15 01:14] LABS: APPEARANCE,URINE CLEAR (CLEAR); BILIRUBIN,URINE NEGATIVE (NEGATIVE); BLOOD, URINE NEGATIVE (NEGATIVE); COLOR,URINE YELLOW (YELLOW); LEUKOCYTE ESTERASE ,URINE NEGATIVE (NEGATIVE); NITRITE, URINE NEGATIVE (NEGATIVE); UGLUCOSE NEGATIVE (NEGATIVE)
[2017-04-15 01:28] LABS: ANION GAP 14.5 (8-16); CARBON DIOXIDE 28.5 mmol/L (21-32); CREATININE 0.9 mg/dL (0.6-1.3)
[2017-04-15 01:33] LABS: ALBUMIN 3.8 g/dL (3.4-5.0); TOTAL BILIRUBIN 0.3 mg/dL (0.0-1.0)
--- NOTE | 2017-04-15 01:51 | NUR ---
PT AMB W/O ASST TO BRP
--- NOTE | 2017-04-15 03:00 | NUR ---
Patient discharged with v/s stable. Written and verbal after care instructions given and explained. Patient alert, oriented and verbalized understanding of instructions. Ambulatory with steady gait. All questions addressed prior to discharge. ID band removed. Patient advised to follow up with PMD. Rx of AUGMENTIN 875 MG given. Patient educated on indication of medication including possible reaction and side effects. Opportunity to ask questions provided and answered.
[2017-04-15 03:01] VITALS: BP 122/79
== END 2017-04-15 03:00 | disposition home or self-care (01) ==
LOC: MED 21:47
DX: R06.00 Dyspnea, unspecified (principal)
CPT/HCPCS: 36415; 80053; 81003; 85025; 87804; 96361; 96374; 99284; J1885

== ENCOUNTER 2017-04-19 23:31 | Emergency (ER) | payer OTHER ==
[~2017-04-19] VITALS: Ht 165.1 cm; Wt 83.1 kg
[2017-04-19 23:36] VITALS: BP 127/73
--- NOTE | 2017-04-19 23:41 | NUR ---
PT TAKEN TO BED 2
--- NOTE | 2017-04-19 23:43 | NUR ---
PATIENT IS A 56 Y/O FEMALE WHO PRESENTS TO THE ED C/O SORE THROAT. PT STATES, "MY THROAT HAS BEEN HURTING FOR ABOUT 3 DAYS NOW." PT REPORTS 8/10 BURNING THROAT PAIN THAT DOES NOT RADIATE. PT DENIES CP, SOB, REPORTS NAUSEA DENIES VOMITING/DIARRHEA. PT AAOX4, RR EVEN/UNLABORED. PT REPOSITIONED FOR COMFORT, BED IN LOWEST POSITION. ER MD DR. ROBISON NOTIFIED. WILL CONTINUE TO MONITOR.
--- NOTE | 2017-04-19 23:57 | NUR ---
Patient being evaluated by physician at bedside.
[2017-04-20 00:20] VITALS: BP 125/75
--- NOTE | 2017-04-20 00:20 | NUR ---
Patient discharged with v/s stable. Written and verbal after care instructions given and explained. Patient alert, oriented and verbalized understanding of instructions. Ambulatory with steady gait. All questions addressed prior to discharge. ID band removed. Patient advised to follow up with PMD. Rx of VALTREX 1G AND CODEINE PHOSPHATE 10MG-6.25MG/5ML given. Patient educated on indication of medication including possible reaction and side effects. Opportunity to ask questions provided and answered.
== END 2017-04-20 00:20 | disposition home or self-care (01) ==
LOC: MED 23:31
DX: J02.8 Acute pharyngitis due to other specified organisms (principal); J00 Acute nasopharyngitis [common cold]; J44.9 Chronic obstructive pulmonary disease, unspecified; K21.9 Gastro-esophageal reflux disease without esophagitis; I10 Essential (primary) hypertension; Z88.5 Allergy status to narcotic agent; Z79.899 Other long term (current) drug therapy
CPT/HCPCS: 99283

== ENCOUNTER 2017-04-24 00:30 | Emergency (ER) | payer OTHER ==
[~2017-04-24] VITALS: Ht 167.6 cm; Wt 81.6 kg
[2017-04-24 00:39] VITALS: BP 110/72
[2017-04-24 00:44] VITALS: BP 110/72
--- NOTE | 2017-04-24 00:44 | NUR ---
TO LOBBY, A/W LISA MANZO NOTED
--- NOTE | 2017-04-24 06:38 | NUR ---
PT AMBULATED TO OF 2
--- NOTE | 2017-04-24 06:45 | NUR ---
56Y/F PT. PRESENTS TO ED WITH C/O SORE THROAT X 3 DAYS. PT DENIES N/V/D; SKIN IS INTACT, PINK/WARM/DRY; AAOX4, PERRL, WITH EVEN AND STEADY GAIT; LUNGS CLEAR BL, BREATHING UNLABORED; HR EVEN AND REGULAR, BL PERIPHERAL PULSES PRESENT; BS ACTIVE X4, NO TENDERNESS TO PALPATION, NO HEPATOSPLENOMEGALLY PALPATED, RESONANT TO PERCUSSION; PT DENIES ANY FEVER, CP, SOB, OR COUGH AT THIS TIME; PT STATES 0/10 PAIN AT THIS TIME; VSS; ER MD MADE AWARE OF PT. STATUS.
--- NOTE | 2017-04-24 06:55 | NUR ---
PATIENT ELOPED FROM FACILITY. DISCHARGE INSTRUCTIONS NOT GIVEN TO PATIENT. DR. SANDOVAL NOTIFIED.
== END 2017-04-24 06:55 | disposition left against medical advice (07) ==
LOC: MED 00:30
DX: R07.0 Pain in throat (principal); Z53.21 Procedure and treatment not carried out due to patient leaving prior to being seen by health care provider

== ENCOUNTER 2017-04-27 13:42 | Emergency (ER) | payer OTHER ==
[~2017-04-27] VITALS: Ht 167.6 cm; Wt 81.2 kg
[2017-04-27 14:18] VITALS: BP 126/95
--- NOTE | 2017-04-27 19:12 | NUR ---
PATIENT AMBULATED TO OF1
--- NOTE | 2017-04-27 19:18 | NUR ---
56 yo female bib self for back pain from fall. PT DENIES N/V/D; SKIN IS PINK/WARM/DRY; AAOX4 WITH EVEN AND STEADY GAIT; LUNGS CLEAR BL; HR EVEN AND REGULAR; PT DENIES ANY FEVER, CP, SOB, OR COUGH AT THIS TIME; PATIENT STATES PAIN OF 10/10 AT THIS TIME; VSS; PATIENT POSITIONED FOR COMFORT; HOB ELEVATED; BEDRAILS UP X2; BED DOWN. ER MD MADE AWARE OF PT STATUS.
[2017-04-27] MEDS ORDERED: KETOROLAC 60 MG/2 ML VIAL IM ONE (19:25)
[2017-04-27 19:54] VITALS: BP 132/81
== END 2017-04-27 19:54 | disposition home or self-care (01) ==
LOC: MED 13:42
DX: M54.5 Low back pain (principal); J44.9 Chronic obstructive pulmonary disease, unspecified; K21.9 Gastro-esophageal reflux disease without esophagitis; I10 Essential (primary) hypertension; Z90.49 Acquired absence of other specified parts of digestive tract; Z88.5 Allergy status to narcotic agent; Z79.899 Other long term (current) drug therapy
CPT/HCPCS: 72100; 96372; 99284; J1885

== ENCOUNTER 2017-07-20 23:26 | Emergency (ER) | payer OTHER ==
[~2017-07-20] VITALS: Ht 165.1 cm; Wt 85.7 kg
[2017-07-20 23:34] VITALS: BP 141/95
--- NOTE | 2017-07-20 23:37 | NUR ---
PT. AMBULATED TO LAURIE FONSECA
--- NOTE | 2017-07-20 23:57 | NUR ---
PT TAKEN TO CHAIR B
--- NOTE | 2017-07-21 00:02 | NUR ---
PATIENT PRESENTS TO ED WITH HEADACHE, DIZZINESS, CHEST PAIN X1 DAY. PT STATES N/D; SKIN IS PINK/WARM/DRY; AAOX4 WITH EVEN AND STEADY GAIT; LUNGS CLEAR BL; HR EVEN AND REGULAR; PT DENIES ANY FEVER, SOB, OR COUGH AT THIS TIME; PATIENT STATES PAIN OF 6/10 AT THIS TIME; VSS; PATIENT POSITIONED FOR COMFORT; SITTING UPRIGHT IN CHAIR. ER MD MADE AWARE OF PT STATUS.
--- NOTE | 2017-07-21 00:50 | NUR ---
Dr. Cutler evaluating patient.
[2017-07-21] MEDS ORDERED: ONDANSETRON 4 MG ODT PO ONE (01:00)
[2017-07-21] MEDS ORDERED: IBUPROFEN 800 MG TAB PO ONE (01:00)
[2017-07-21 01:20] VITALS: BP 141/95
--- NOTE | 2017-07-21 01:20 | NUR ---
Patient discharged with v/s stable. Written and verbal after care instructions given and explained. Patient alert, oriented and verbalized understanding of instructions. Ambulatory with steady gait. All questions addressed prior to discharge. ID band removed. Patient advised to follow up with PMD. Rx of ZOFRAN, TRAMADOL given. Patient educated on indication of medication including possible reaction and side effects. Opportunity to ask questions provided and answered.
== END 2017-07-21 01:20 | disposition home or self-care (01) ==
LOC: MED 23:26
DX: A08.4 Viral intestinal infection, unspecified (principal); J44.9 Chronic obstructive pulmonary disease, unspecified; K21.9 Gastro-esophageal reflux disease without esophagitis; I10 Essential (primary) hypertension; Z88.6 Allergy status to analgesic agent; Z79.899 Other long term (current) drug therapy
CPT/HCPCS: 99283; S0119

== ENCOUNTER 2017-07-28 09:48 | Emergency (ER) | payer OTHER ==
[~2017-07-28] VITALS: Ht 167.6 cm; Wt 83.9 kg
[2017-07-28 09:50] VITALS: BP 149/91
[2017-07-28] MEDS: ALPRAZolam 0.5 MG TAB PO SCH (11:27)
[2017-07-28 16:21] VITALS: BP 126/74
== END 2017-07-28 16:21 | disposition home or self-care (01) ==
LOC: MED 09:48
DX: F41.9 Anxiety disorder, unspecified (principal); L50.9 Urticaria, unspecified; J44.9 Chronic obstructive pulmonary disease, unspecified; I10 Essential (primary) hypertension; K21.9 Gastro-esophageal reflux disease without esophagitis; Z88.6 Allergy status to analgesic agent; Z79.899 Other long term (current) drug therapy; Z76.0 Encounter for issue of repeat prescription
CPT/HCPCS: 81002; 81025; 99283

== ENCOUNTER 2017-08-05 19:44 | Emergency (ER) | payer OTHER ==
[~2017-08-05] VITALS: Ht 167.6 cm; Wt 85.7 kg
[2017-08-05 20:02] VITALS: BP 139/88
--- NOTE | 2017-08-05 20:05 | NUR ---
PT. AMBULATED TO LAUIRE FONSECA
--- NOTE | 2017-08-05 20:25 | NUR ---
PATIENT PRESENTS TO ED WITH REQUEST FOR BENAZEPRIL 40 MG QD REFILL. MED HX. HTN, COPD, ASTHMA, LEXII PT DENIES N/V/D; SKIN IS PINK/WARM/DRY; AAOX4 WITH EVEN AND STEADY GAIT; LUNGS CLEAR BL; HR EVEN AND REGULAR; PT DENIES ANY FEVER, CP, SOB, OR COUGH AT THIS TIME; PATIENT STATES PAIN OF 0/10 AT THIS TIME; VSS; PATIENT POSITIONED FOR COMFORT; HOB ELEVATED; BEDRAILS UP X2; BED DOWN. ER MD MADE AWARE OF PT STATUS.
[2017-08-05] MEDS ORDERED: KETOROLAC 60 MG/2 ML VIAL IM ONE (23:40)
--- NOTE | 2017-08-06 00:20 | NUR ---
Patient discharged with v/s stable. Written and verbal after care instructions given and explained. Patient alert, oriented and verbalized understanding of instructions. Ambulatory with steady gait. All questions addressed prior to discharge. ID band removed. Patient advised to follow up with PMD. Rx of PREDNISONE, TRAMADOL AND BENAZEPRIL given. Patient educated on indication of medication including possible reaction and side effects. Opportunity to ask questions provided and answered.
[2017-08-06 00:21] VITALS: BP 143/98
== END 2017-08-06 00:20 | disposition home or self-care (01) ==
LOC: MED 19:44
DX: I10 Essential (primary) hypertension (principal); R05 Cough; J44.9 Chronic obstructive pulmonary disease, unspecified; K21.9 Gastro-esophageal reflux disease without esophagitis; Z76.0 Encounter for issue of repeat prescription; Z88.6 Allergy status to analgesic agent; Z90.49 Acquired absence of other specified parts of digestive tract; Z79.899 Other long term (current) drug therapy
CPT/HCPCS: 96372; 99283; J1885

== ENCOUNTER 2018-05-10 00:03 | Emergency (ER) | payer OTHER ==
[~2018-05-10] VITALS: Ht 167.6 cm; Wt 86.2 kg
[~2018-05-10 00:03] MED LIST changes: -ASPI81EC PO; -BENA20TA5; +BENA20TA88; -OMEP20EC6 PO; +[UNRECOGNIZED DRUG - CODE] PO; +[UNRECOGNIZED DRUG - CODE] PO
[2018-05-10 00:19] VITALS: BP 112/87
--- NOTE | 2018-05-10 00:19 | NUR ---
TO BED # 3 AMBULATORY, REPORT GIVEN TO TOREY MEDEL
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
[2018-05-10] MEDS ORDERED: KETOROLAC 30 MG/ML VIAL IM ONE (00:35)
[2018-05-10 01:13] VITALS: BP 117/89
== END 2018-05-10 01:14 | disposition home or self-care (01) ==
LOC: MED 00:03
DX: M54.5 Low back pain (principal); J44.9 Chronic obstructive pulmonary disease, unspecified; K21.9 Gastro-esophageal reflux disease without esophagitis; I10 Essential (primary) hypertension; Z79.2 Long term (current) use of antibiotics; Z79.899 Other long term (current) drug therapy; Z88.5 Allergy status to narcotic agent; W20.8XXA Other cause of strike by thrown, projected or falling object, initial encounter; Y93.89 Activity, other specified; Y92.512 Supermarket, store or market as the place of occurrence of the external cause; Y99.8 Other external cause status
CPT/HCPCS: 72100; 96372; 99283; J1885

== ENCOUNTER 2018-05-13 | Emergency (ER) | payer OTHER ==
[~2018-05-13] VITALS: Ht 165.1 cm; Wt 81.2 kg
[2018-05-13 00:01] VITALS: BP 137/55
--- NOTE | 2018-05-13 00:01 | NUR ---
PT RANDI SHRESTHAS. TAKEN TO BED 4
--- NOTE | 2018-05-13 00:16 | NUR ---
Dr. Croft evaluating patient at bedside.
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
[2018-05-13 00:32] VITALS: BP 137/55
== END 2018-05-13 00:32 | disposition home or self-care (01) ==
LOC: MED
DX: F41.9 Anxiety disorder, unspecified (principal); M54.32 Sciatica, left side; J44.9 Chronic obstructive pulmonary disease, unspecified; K21.9 Gastro-esophageal reflux disease without esophagitis; I10 Essential (primary) hypertension; Z79.2 Long term (current) use of antibiotics; Z79.891 Long term (current) use of opiate analgesic; Z79.899 Other long term (current) drug therapy; Z88.5 Allergy status to narcotic agent
CPT/HCPCS: 81002; 81025; 99284

== ENCOUNTER 2018-06-16 11:14 | Emergency (ER) | payer OTHER ==
[~2018-06-16] VITALS: Ht 165.1 cm; Wt 81.6 kg
[2018-06-16 11:23] VITALS: BP 120/81
--- NOTE | 2018-06-16 11:38 | NUR ---
PT AMB TO BED 9
--- NOTE | 2018-06-16 11:45 | NUR ---
C/O NAUSEA, SOB X 3 DAYS. COUGH X 1 WEEK. HEADACHE X TODAY. SEEN BY PCP X 1 WEEK AGO; GOT KEFLEX FOR UTI. MED HX: ASTHMA, COPD, HTN, ANXIETY,REFLUX MED; ON MED LIST
[2018-06-16] MEDS ORDERED: MECLIZINE 25 MG TAB PO ONE (12:35)
[2018-06-16 14:10] VITALS: BP 133/73
--- NOTE | 2018-06-16 14:10 | NUR ---
Note eladio in EDM - 06/16/18 at 1421 by CHELSEA Patient discharged with v/s stable. Written and verbal after care instructions given and explained. Patient alert, oriented and verbalized understanding of instructions. Ambulatory with steady gait. All questions addressed prior to discharge. ID band removed. Patient advised to follow up with PMD. Rx of Meclizine given. Patient educated on indication of medication including possible reaction and side effects. Opportunity to ask questions provided and answered.
== END 2018-06-16 14:10 | disposition home or self-care (01) ==
LOC: MED 11:14
DX: R42 Dizziness and giddiness (principal); R06.02 Shortness of breath; R68.83 Chills (without fever); J44.9 Chronic obstructive pulmonary disease, unspecified; I10 Essential (primary) hypertension; Z88.5 Allergy status to narcotic agent; Z79.899 Other long term (current) drug therapy
CPT/HCPCS: 70450; 71045; 99284; J8597; Q0092

== ENCOUNTER 2018-08-09 16:55 | Emergency (ER) | payer OTHER ==
[~2018-08-09] VITALS: Ht 165.1 cm; Wt 81.6 kg
[2018-08-09 17:12] VITALS: BP 127/91
--- NOTE | 2018-08-09 17:20 | NUR ---
C/O ACHEY LOWER ABDOMINAL PAIN 11/05 THAT RADIATES TO LOWER BACK. PT STATES SHE HAD A RECENT UTI THAT SHE TOOK AMOXICILLIN FOR BUT SHE DOESNT THINK IT EVER WENT AWAY COMPLETELY. DENIES N/V/D/FEVER.
--- NOTE | 2018-08-09 17:25 | NUR ---
ERMD AT BEDSIDE
[2018-08-09] MEDS ORDERED: KETOROLAC 30 MG/ML VIAL IM ONE (17:30)
[2018-08-09 17:52] LABS: APPEARANCE,URINE HAZY (CLEAR); BILIRUBIN,URINE NEGATIVE (NEGATIVE); BLOOD, URINE NEGATIVE (NEGATIVE); COLOR,URINE YELLOW (YELLOW); LEUKOCYTE ESTERASE ,URINE NEGATIVE (NEGATIVE); NITRITE, URINE NEGATIVE (NEGATIVE); PH,URINE 5.5 (5.0-9.0); UGLUCOSE NEGATIVE (NEGATIVE)
--- NOTE | 2018-08-09 18:50 | NUR ---
Patient discharged with v/s stable. Written and verbal after care instructions given and explained. Patient alert, oriented and verbalized understanding of instructions. Ambulatory with steady gait. All questions addressed prior to discharge. ID band removed. Patient advised to follow up with PMD. Rx of VOLTAREN GEL given. Patient educated on indication of medication including possible reaction and side effects. Opportunity to ask questions provided and answered.
[2018-08-09 18:55] VITALS: BP 127/91
== END 2018-08-09 18:50 | disposition home or self-care (01) ==
LOC: MED 16:55
DX: M54.9 Dorsalgia, unspecified (principal); J44.9 Chronic obstructive pulmonary disease, unspecified; I10 Essential (primary) hypertension; Z88.5 Allergy status to narcotic agent; Z79.891 Long term (current) use of opiate analgesic; Z79.1 Long term (current) use of non-steroidal anti-inflammatories (NSAID); Z79.899 Other long term (current) drug therapy
CPT/HCPCS: 81003; 81025; 87086; 96372; 99283; J1885

== ENCOUNTER 2018-11-11 23:16 | Emergency (ER) | payer OTHER ==
[~2018-11-11] VITALS: Ht 165.1 cm; Wt 72.6 kg
[2018-11-11 23:24] VITALS: BP 123/84
[2018-11-12] MEDS ORDERED: KETOROLAC 30 MG/ML VIAL IM ONE (00:30)
== END 2018-11-12 00:54 | disposition home or self-care (01) ==
LOC: MED 23:16
DX: S46.911A Strain of unspecified muscle, fascia and tendon at shoulder and upper arm level, right arm, initial encounter (principal); J44.9 Chronic obstructive pulmonary disease, unspecified; I10 Essential (primary) hypertension; Z79.899 Other long term (current) drug therapy; Z79.891 Long term (current) use of opiate analgesic; Z79.1 Long term (current) use of non-steroidal anti-inflammatories (NSAID); Z79.82 Long term (current) use of aspirin; Z79.51 Long term (current) use of inhaled steroids; Z88.5 Allergy status to narcotic agent; W01.0XXA Fall on same level from slipping, tripping and stumbling without subsequent striking against object, initial encounter; Y92.89 Other specified places as the place of occurrence of the external cause; Y93.89 Activity, other specified; Y99.8 Other external cause status
CPT/HCPCS: 73030; 96372; 99283; J1885; Q0092

== ENCOUNTER 2018-11-30 21:03 | Emergency (ER) | payer OTHER ==
[~2018-11-30] VITALS: Ht 165.1 cm; Wt 77.1 kg
[2018-11-30 21:15] VITALS: BP 117/76
[2018-11-30] MEDS ORDERED: KETOROLAC 30 MG/ML VIAL IM ONE (21:30)
[2018-11-30 22:21] VITALS: BP 117/76
== END 2018-11-30 22:21 | disposition home or self-care (01) ==
LOC: MED 21:03
DX: S20.211A Contusion of right front wall of thorax, initial encounter (principal); J44.9 Chronic obstructive pulmonary disease, unspecified; I10 Essential (primary) hypertension; Z79.899 Other long term (current) drug therapy; Z79.891 Long term (current) use of opiate analgesic; Z79.82 Long term (current) use of aspirin; Z88.5 Allergy status to narcotic agent; Z79.51 Long term (current) use of inhaled steroids; W18.39XA Other fall on same level, initial encounter; Y92.89 Other specified places as the place of occurrence of the external cause; Y93.89 Activity, other specified; Y99.8 Other external cause status
CPT/HCPCS: 71045; 96372; 99283; J1885; Q0092

== ENCOUNTER 2019-01-23 01:50 | Emergency (ER) | payer OTHER ==
[~2019-01-23] VITALS: Ht 170.2 cm; Wt 90.7 kg
[~2019-01-23 01:50] MED LIST changes: +OMEP-100 PO; -OXYB5TAB21 PO; +OXYB5TAB43 PO; -[UNRECOGNIZED DRUG - CODE] PO
[2019-01-23 01:52] VITALS: BP 142/93
--- NOTE | 2019-01-23 01:52 | NUR ---
PT TRANSFERRED FROM [facility] TO BED #5
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
[2019-01-23 02:25] VITALS: BP 142/93
--- NOTE | 2019-01-23 02:25 | NUR ---
PT DISCHARGED WITH PAPERWORK. NO RX PROVIDED. EDUCATED PT REGARDING D/C DIAGNOSIS AND INSTRUCTIONS. PT VERBALIZED UNDERSTANDING OF TEACHING. TOLD PT TO FOLLOW UP WITH PCP AND WHEN TO RETURN TO ED. PT VSS. DENIES CHEST PAIN/PALPITATIONS. ALL QUESTIONS ANSWERED.
== END 2019-01-23 02:25 | disposition home or self-care (01) ==
LOC: MED 01:50
DX: F41.9 Anxiety disorder, unspecified (principal); R00.2 Palpitations; J44.9 Chronic obstructive pulmonary disease, unspecified; I10 Essential (primary) hypertension; F31.9 Bipolar disorder, unspecified; F20.9 Schizophrenia, unspecified; Z90.49 Acquired absence of other specified parts of digestive tract; Z79.899 Other long term (current) drug therapy; Z79.891 Long term (current) use of opiate analgesic; Z79.82 Long term (current) use of aspirin; Z79.1 Long term (current) use of non-steroidal anti-inflammatories (NSAID); Z88.5 Allergy status to narcotic agent
CPT/HCPCS: 93005; 99283

== ENCOUNTER 2019-04-05 13:46 | Emergency (ER) | payer OTHER ==
[~2019-04-05] VITALS: Ht 165.1 cm; Wt 70.3 kg
[2019-04-05 13:56] VITALS: BP 118/76
--- NOTE | 2019-04-05 14:04 | NUR ---
PT TO BED 11 WITH STEADY GAIT
--- NOTE | 2019-04-05 14:20 | NUR ---
58 Y/O FEMALE C/O DIZZINESS AND INTERMITTENT BLURRED VISION X 1 WEEK. DENIES SYNCOPAL EPISODE. PT STATES CONGESTION W/O COUGH. 0/10 PAIN AT THIS TIME. STATES SHE FEELS MORE FATIGUE THAN USUAL. LOSS OF APPETITE, + NAUSEA. DENIES VOMITING/DIARRHEA. RR EVEN AND UNLABORED. PT CALM AND PLEASANT. LAYING IN BED POSITIONED FOR COMFORT. VSS MEDHX: DM, HTN, SLEEP APNEA ALLERGIES: CODEINE
--- NOTE | 2019-04-05 14:22 | NUR ---
INFLUENZA SWAB COLLECTED AT THIS TIME
--- NOTE | 2019-04-05 14:25 | NUR ---
EMT AT BEDSIDE PERFORMING EKG
[2019-04-05 14:49] LABS: BASOPHILS # (AUTO) 0.1 K/uL (0.00-0.22); BASOPHILS % (AUTO) 0.9 % (0.0-2.0); EOSINOPHILS # (AUTO) 0.1 K/uL (0-0.4); EOSINOPHILS % (AUTO) 1.5 % (0.0-4.0); HEMATOCRIT 44.2 % (36-48); HEMOGLOBIN 14.6 g/dL (12.0-16.0); LYMPHOCYTES # (AUTO) 2.2 K/uL (2.5-16.5); LYMPHOCYTES % (AUTO) 27.2 % (20.5-51.1); MEAN CORPUSCULAR HEMOGLOBIN 29 pg (27-31); MEAN CORPUSCULAR HGB CONC 33 g/dL (33-37); MEAN CORPUSCULAR VOLUME 87.4 fL (80-94); MONOCYTES # (AUTO) 0.4 K/uL (0.8-1.0); MONOCYTES % (AUTO) 5.6 % (1.7-9.3); NEUTROPHILS # (AUTO) 5.2 K/uL (1.8-7.7); NEUTROPHILS % (AUTO) 64.8 % (42.2-75.2); PLATELET COUNT (AUTO) 234 K/uL (140-450); RED BLOOD CELL COUNT(AUTO) 5.05 MIL/uL (4.20-5.40); RED CELL DISTRIBUTION WIDTH 13.9 % (11.6-13.7)
[2019-04-05 14:58] LABS: ANION GAP 13.1 (8-16); CARBON DIOXIDE 27.3 mmol/L (21-32); CREATININE 0.7 mg/dL (0.6-1.3); POTASSIUM 3.4 mmol/L (3.5-5.1)
[2019-04-05 15:03] LABS: TOTAL BILIRUBIN 0.5 mg/dL (0.0-1.0)
--- NOTE | 2019-04-05 15:04 | NUR ---
PT STATES SHE IS UNABLE TO PROVIDE URINE AT THIS TIME. WILL RECHECK.
[2019-04-05 15:56] VITALS: BP 118/76
== END 2019-04-05 15:56 | disposition home or self-care (01) ==
LOC: MED 13:46
DX: I95.1 Orthostatic hypotension (principal); R42 Dizziness and giddiness; J44.9 Chronic obstructive pulmonary disease, unspecified; I10 Essential (primary) hypertension; Z90.49 Acquired absence of other specified parts of digestive tract; Z98.51 Tubal ligation status; Z98.890 Other specified postprocedural states; Z79.899 Other long term (current) drug therapy; Z79.891 Long term (current) use of opiate analgesic; Z79.82 Long term (current) use of aspirin; Z79.51 Long term (current) use of inhaled steroids; Z79.1 Long term (current) use of non-steroidal anti-inflammatories (NSAID); Z88.5 Allergy status to narcotic agent
CPT/HCPCS: 36415; 71046; 80053; 82948; 85025; 87804; 93005; 99284

== ENCOUNTER 2019-09-13 19:03 | Emergency (ER) | payer OTHER ==
[~2019-09-13] VITALS: Ht 165.1 cm; Wt 77.1 kg
[2019-09-13 19:10] VITALS: BP 112/77
[2019-09-13] MEDS ORDERED: HYDROcodone/APAP 5/325 MG 1 TAB TAB PO ONE (19:40)
[2019-09-13 20:35] VITALS: BP 112/77
== END 2019-09-13 20:35 | disposition home or self-care (01) ==
LOC: MED 19:03
DX: M25.512 Pain in left shoulder (principal); J45.909 Unspecified asthma, uncomplicated; J44.9 Chronic obstructive pulmonary disease, unspecified; I10 Essential (primary) hypertension; Z79.899 Other long term (current) drug therapy; Z88.6 Allergy status to analgesic agent
CPT/HCPCS: 73030; 99283; Q0092

== ENCOUNTER 2019-09-23 13:17 | Emergency (ER) | payer OTHER ==
[~2019-09-23] VITALS: Ht 157.5 cm; Wt 65.8 kg
--- NOTE | 2019-09-23 13:17 | NUR ---
PT RANDI ALS TO ER BED 11. RN EVALUATING AT BEDSIDE.
[2019-09-23 13:20] VITALS: BP 144/94
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
[2019-09-23] MEDS ORDERED: DIAZEPAM 5 MG TAB PO ONE (14:15)
--- NOTE | 2019-09-23 14:40 | NUR ---
ekg at bedside.
[2019-09-23 15:07] VITALS: BP 144/94
== END 2019-09-23 15:07 | disposition home or self-care (01) ==
LOC: MED 13:17
DX: R00.2 Palpitations (principal); F41.9 Anxiety disorder, unspecified
CPT/HCPCS: 99283

== ENCOUNTER 2019-09-26 07:46 | Emergency (ER) | payer OTHER ==
[~2019-09-26] VITALS: Ht 165.1 cm; Wt 77.6 kg
[~2019-09-26 07:46] MED LIST changes: -ACET-787 PO; +HYDR-5191 PO
--- NOTE | 2019-09-26 07:46 | NUR ---
Patient BIBA BLS, transferred to bed 4. RN evaluating patient at bedside.
[2019-09-26 07:50] VITALS: BP 145/99
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
--- NOTE | 2019-09-26 07:51 | NUR ---
DR. MACIAS AT BEDSIDE EVALUATING PT
[2019-09-26] MEDS ORDERED: KETOROLAC 30 MG/ML VIAL IM ONE (08:05)
--- NOTE | 2019-09-26 08:12 | NUR ---
appkied sling to left shoulder without any issues
[2019-09-26] MEDS ORDERED: ONDANSETRON 4 MG ODT PO ONE (08:15)
[2019-09-26 08:20] VITALS: BP 145/99
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
== END 2019-09-26 08:20 | disposition home or self-care (01) ==
LOC: MED 07:46
DX: S46.812A Strain of other muscles, fascia and tendons at shoulder and upper arm level, left arm, initial encounter (principal); I10 Essential (primary) hypertension; J45.909 Unspecified asthma, uncomplicated; J44.9 Chronic obstructive pulmonary disease, unspecified; M54.10 Radiculopathy, site unspecified; Z88.6 Allergy status to analgesic agent; Z79.899 Other long term (current) drug therapy; Z90.49 Acquired absence of other specified parts of digestive tract; X58.XXXA Exposure to other specified factors, initial encounter; Y93.89 Activity, other specified; Y92.89 Other specified places as the place of occurrence of the external cause; Y99.8 Other external cause status
CPT/HCPCS: 96372; 99283; J1885; Q0162

== ENCOUNTER 2019-12-08 13:02 | Emergency (ER) | payer OTHER ==
[~2019-12-08] VITALS: Ht 165.1 cm; Wt 80.7 kg
[2019-12-08 13:13] VITALS: BP 162/90
--- NOTE | 2019-12-08 13:32 | NUR ---
59 YEAR OLD FEMALE COMPLAINS OF LEFT SHOULDER PAIN THAT HAS WORSENED THIS PAST WEEK WHEN NORMALLY CHRONIC PAIN. PT STATES SHE TOOK TYLENOL AND IBUPROFEN IN THE MORNING AT 930AM BUT IT DID NOT RESOLVE PAIN. PT WITH LIMITED ROM IN SHOULDER, RADIAL PULSE +3, CAP REFILL < 3 SEC. PT AOX4, BREATHING EVEN AND UNLABORED, SKIN WARM AND DRY. BED IN LOWEST POSITION, LOCKED, BED RAIL UPX1. PMH - ARTHRITIS ALLERGIES - CODEINE
[2019-12-08] MEDS ORDERED: KETOROLAC 60 MG/2 ML VIAL IM ONE (13:55)
--- NOTE | 2019-12-08 14:20 | NUR ---
Patient discharged with v/s stable. Written and verbal after care instructions about shoulder pain given and explained. Patient verbalized understanding. Ambulatory with steady gait. All questions addressed prior to discharge. Advised to follow up with PMD.
[2019-12-08 14:22] VITALS: BP 152/90
== END 2019-12-08 14:20 | disposition home or self-care (01) ==
LOC: MED 13:02
DX: M25.512 Pain in left shoulder (principal); I10 Essential (primary) hypertension; J45.909 Unspecified asthma, uncomplicated; J44.9 Chronic obstructive pulmonary disease, unspecified; M19.90 Unspecified osteoarthritis, unspecified site; Z88.6 Allergy status to analgesic agent; Z79.899 Other long term (current) drug therapy
CPT/HCPCS: 96372; 99283; J1885

== ENCOUNTER 2020-05-02 11:12 | Emergency (ER) | payer OTHER ==
[~2020-05-02] VITALS: Ht 165.1 cm; Wt 79.4 kg
[2020-05-02 11:13] VITALS: BP 138/89
--- NOTE | 2020-05-02 11:26 | NUR ---
Patient ambulated to bed 6. RN evaluating patient at bedside.
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
--- NOTE | 2020-05-02 11:34 | NUR ---
Dr Cao at bedside examining patient
--- NOTE | 2020-05-02 12:48 | NUR ---
Patient taken to CT via verito
--- NOTE | 2020-05-02 13:00 | NUR ---
Patient returned from CT scan.
[2020-05-02 14:05] VITALS: BP 138/89
--- NOTE | 2020-05-02 14:06 | NUR ---
Patient discharged with v/s stable. Written and verbal after care instructions given and explained. Patient alert, oriented and verbalized understanding of instructions. Ambulatory with walker. All questions addressed prior to discharge. ID band removed. Patient advised to follow up with PMD. Rx of MARTÍN AGUAYO given. Patient educated on indication of medication including possible reaction and side effects. Opportunity to ask questions provided and answered.
== END 2020-05-02 14:05 | disposition home or self-care (01) ==
LOC: MED 11:12
DX: S30.1XXA Contusion of abdominal wall, initial encounter (principal); J45.909 Unspecified asthma, uncomplicated; I10 Essential (primary) hypertension; Z88.5 Allergy status to narcotic agent; Z79.899 Other long term (current) drug therapy; X58.XXXA Exposure to other specified factors, initial encounter; Y93.89 Activity, other specified; Y92.89 Other specified places as the place of occurrence of the external cause; Y99.8 Other external cause status
CPT/HCPCS: 71250; 99285

== ENCOUNTER 2021-01-16 08:58 | Emergency (ER) | payer OTHER ==
[~2021-01-16] VITALS: Ht 167.6 cm; Wt 85.4 kg
--- NOTE | 2021-01-16 09:35 | NUR ---
CALLEDX 1. NO SHOW.
[2021-01-16 09:56] VITALS: BP 152/92
--- NOTE | 2021-01-16 10:43 | NUR ---
dr. quintanilla bedside evaluating patient
--- NOTE | 2021-01-16 10:50 | NUR ---
PT PLACED INTO GOWN BEDSIDE
[2021-01-16] MEDS ORDERED: ACETAMINOPHEN 325 MG TAB PO ONE (10:55)
[2021-01-16] MEDS ORDERED: FUROSEMIDE 40 MG TAB PO ONE (10:55)
[2021-01-16] MEDS ORDERED: DICYCLOMINE HCL LIQUID 20 MG, ALUMINUM HYD/MAG/SIMETHICONE 30 ML, LIDOCAINE VISCOUS 2% ... PO ONE ×3 (10:55)
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
[2021-01-16] MEDS ORDERED: ALUMINUM HYD/MAG/SIMETHICONE 30 ML UDC ONE (10:56)
[2021-01-16] MEDS ORDERED: DICYCLOMINE HCL LIQUID 10 MG/5 ML UDC ONE (10:56)
--- NOTE | 2021-01-16 11:20 | NUR ---
XRAY BEDSIDE WITH PATIENT
--- NOTE | 2021-01-16 11:24 | NUR ---
ASSOCIATE PROGRAMMER BEDSIDE COLLECTING BLOOD WORK
[2021-01-16 11:40] LABS: BASOPHILS # (AUTO) 0.1 K/uL (0.00-0.22); BASOPHILS % (AUTO) 0.8 % (0.0-2.0); EOSINOPHILS # (AUTO) 0.2 K/uL (0-0.4); EOSINOPHILS % (AUTO) 1.9 % (0.0-4.0); HEMATOCRIT 38.3 % (36-48); HEMOGLOBIN 12.6 g/dL (12.0-16.0); LYMPHOCYTES # (AUTO) 3.1 K/uL (2.5-16.5); LYMPHOCYTES % (AUTO) 33.7 % (20.5-51.1); MEAN CORPUSCULAR HEMOGLOBIN 30 pg (27-31); MEAN CORPUSCULAR HGB CONC 33 g/dL (33-37); MEAN CORPUSCULAR VOLUME 90.4 fL (80-94); MONOCYTES # (AUTO) 0.8 K/uL (0.8-1.0); MONOCYTES % (AUTO) 8.9 % (1.7-9.3); NEUTROPHILS # (AUTO) 5.1 K/uL (1.8-7.7); NEUTROPHILS % (AUTO) 54.7 % (42.2-75.2); PLATELET COUNT (AUTO) 289 K/uL (140-450); RED BLOOD CELL COUNT(AUTO) 4.24 MIL/uL (4.20-5.40); RED CELL DISTRIBUTION WIDTH 14.8 % (11.6-13.7); WHITE BLOOD COUNT (AUTO) 9.3 K/uL (4.8-10.8)
--- NOTE | 2021-01-16 11:40 | NUR ---
PT REMOVED GOWN AND PLACED CLOTHING BACK ON
[2021-01-16 11:55] LABS: ALBUMIN 3.8 g/dL (3.4-5.0); ANION GAP 12.4 (8-16); CREATININE 0.6 mg/dL (0.6-1.3); POTASSIUM 3.4 mmol/L (3.5-5.1); TOTAL BILIRUBIN 0.2 mg/dL (0.0-1.0)
--- NOTE | 2021-01-16 12:17 | NUR ---
Patient appears to be resting comfortably in bed and talking on phone. Vital Signs within normal limits and charted. Respirations even and unlabored.
--- NOTE | 2021-01-16 12:19 | NUR ---
pt provided with water cup
[2021-01-16] MEDS ORDERED: NAPR-1717 PO (13:17)
[2021-01-16 13:26] VITALS: BP 148/82
== END 2021-01-16 13:26 | disposition home or self-care (01) ==
LOC: MED 08:58
DX: M79.89 Other specified soft tissue disorders (principal); R10.9 Unspecified abdominal pain; J45.909 Unspecified asthma, uncomplicated; I10 Essential (primary) hypertension; Z79.899 Other long term (current) drug therapy; Z90.49 Acquired absence of other specified parts of digestive tract; Z98.890 Other specified postprocedural states; Z88.5 Allergy status to narcotic agent; Z79.82 Long term (current) use of aspirin
CPT/HCPCS: 36415; 71045; 80053; 84484; 85025; 93005; 99285; Q0092

== ENCOUNTER 2021-01-18 22:43 | Emergency (ER) | payer OTHER ==
[~2021-01-18] VITALS: Ht 167.6 cm; Wt 83.5 kg
[~2021-01-18 22:43] MED LIST changes: +NAPR-1717 PO
[2021-01-18 23:16] VITALS: BP 137/90
--- NOTE | 2021-01-18 23:20 | NUR ---
TO LOBBY A/W BED AMBULATORY
--- NOTE | 2021-01-18 23:52 | NUR ---
SEEN AND EXAMINED BY ROMAN
[2021-01-19] MEDS ORDERED: KETOROLAC 30 MG/ML VIAL IM ONE
--- NOTE | 2021-01-19 | NUR ---
MEDICATED PER ERMDS ORDER, TOLERATED WELL
[2021-01-19] MEDS ORDERED: LID5T TP (00:07)
[2021-01-19] MEDS ORDERED: CYCL-654 PO (00:07)
[2021-01-19] MEDS ORDERED: DICL100G5 TP (00:07)
[2021-01-19 00:25] VITALS: BP 137/90
--- NOTE | 2021-01-19 00:25 | NUR ---
Patient discharged with v/s stable. Written and verbal after care instructions given and explained. Patient alert, oriented and verbalized understanding of instructions. Ambulatory with steady gait. All questions addressed prior to discharge. ID band removed. Patient advised to follow up with PMD. Rx of LIDODERM PATCH , CYCLOBENZAPRINE given. Patient educated on indication of medication including possible reaction and side effects. Opportunity to ask questions provided and answered.
== END 2021-01-19 00:25 | disposition home or self-care (01) ==
LOC: MED 22:43
DX: M54.42 Lumbago with sciatica, left side (principal); M54.41 Lumbago with sciatica, right side; R60.0 Localized edema; I11.0 Hypertensive heart disease with heart failure; I50.9 Heart failure, unspecified; J44.9 Chronic obstructive pulmonary disease, unspecified; Z79.1 Long term (current) use of non-steroidal anti-inflammatories (NSAID); Z79.899 Other long term (current) drug therapy; Z79.82 Long term (current) use of aspirin; Z79.891 Long term (current) use of opiate analgesic; Z88.5 Allergy status to narcotic agent
CPT/HCPCS: 96372; 99283; J1885

== ENCOUNTER 2021-06-16 04:30 | Emergency (ER) | payer OTHER ==
[~2021-06-16] VITALS: Ht 167.6 cm; Wt 83.9 kg
[~2021-06-16 04:30] MED LIST changes: +CYCL-654 PO; +DICL100G5 TP; +LID5T TP
[2021-06-16 04:41] VITALS: BP 162/82
--- NOTE | 2021-06-16 04:49 | NUR ---
PT TAKEN TO BED 12
--- NOTE | 2021-06-16 05:21 | NUR ---
PT WITH MULTIPLE COMPLAINTS UPON ASSESSMENT. STATES SHE HAS A BURNING SENSATION IN HER STOMACH THAT RADIATES ALL THE WAY DOWN TO HER VAGINA AND NOW HAS DISCHARGE. SHE STATES THE MAIN REASON SHE IS HERE IS TO "GET A TORADOL SHOT" DUE TO HER SCIATICA PAIN. SHE ALSO STATES SHE HAS BEEN TO HER DOCTOR AND THAT HER DOCTOR STATES "THERE IS SOMETHING WRONG WITH HER BRAIN AND IT IS ALL CONNECTED TO HER PAIN." ALLERGIES: CODEINE
[2021-06-16] MEDS ORDERED: KETOROLAC 30 MG/ML VIAL ONE (05:57)
--- NOTE | 2021-06-16 06:00 | NUR ---
ADMINISTERED TORADOL SHOT PER DOCTOR AZUBUIKE VERBAL ORDER. PT TOLERATED WELL.
[2021-06-16] MEDS ORDERED: KETOROLAC 30 MG/ML VIAL IM ONE (06:15)
--- NOTE | 2021-06-16 06:19 | NUR ---
Dr. Denton examining patient.
--- NOTE | 2021-06-16 06:54 | NUR ---
PT DISCHARGED AND LEFT WITHOUT PAPERWORK. PT IN STABLE CONDITION, AMBULATORY.
[2021-06-16 06:55] VITALS: BP 162/82
== END 2021-06-16 06:54 | disposition home or self-care (01) ==
LOC: MED 04:30
DX: M54.50 Low back pain, unspecified (principal); G89.29 Other chronic pain; J44.9 Chronic obstructive pulmonary disease, unspecified; I11.0 Hypertensive heart disease with heart failure; I50.9 Heart failure, unspecified; Z79.899 Other long term (current) drug therapy; Z79.1 Long term (current) use of non-steroidal anti-inflammatories (NSAID); Z79.891 Long term (current) use of opiate analgesic; Z79.82 Long term (current) use of aspirin; Z88.5 Allergy status to narcotic agent
CPT/HCPCS: 81025; 96372; 99283; J1885

== ENCOUNTER 2021-06-23 19:09 | Emergency (ER) | payer OTHER ==
[~2021-06-23] VITALS: Ht 167.6 cm; Wt 90.7 kg
[2021-06-23 19:58] VITALS: BP 153/86
--- NOTE | 2021-06-23 20:01 | NUR ---
TO LOBBY A/W BED AMBULATORY
--- NOTE | 2021-06-23 21:05 | NUR ---
SEEN AND EXAMINED BY ADITYAD, WITH ORDERS
[2021-06-23 21:55] LABS: APPEARANCE,URINE CLEAR (CLEAR); BILIRUBIN,URINE NEGATIVE (NEGATIVE); BLOOD, URINE TRACE-I (NEGATIVE); COLOR,URINE YELLOW (YELLOW); LEUKOCYTE ESTERASE ,URINE NEGATIVE (NEGATIVE); NITRITE, URINE NEGATIVE (NEGATIVE); RBC,URINE 0-5 /HPF (0-5); UGLUCOSE NEGATIVE (NEGATIVE); WBC,URINE NONE SEEN /HPF (0-5)
--- NOTE | 2021-06-23 22:34 | NUR ---
PT TAKEN TO BED 11
--- NOTE | 2021-06-23 22:43 | NUR ---
Female Oss Architect accompanied female patient for Pelvic Exam.
[2021-06-23] MEDS ORDERED: DOXYCYCLINE 100 MG CAP PO ONE (22:45)
--- NOTE | 2021-06-23 22:50 | NUR ---
[facility] [place] COLLECTED AND WALKED TO LAB
[2021-06-23] MEDS ORDERED: DOXY-690 PO (23:03)
[2021-06-23] MEDS ORDERED: cefTRIAXone 500 MG VIAL ONE (23:15)
--- NOTE | 2021-06-23 23:50 | NUR ---
60 Y/O FEMALE BIB SELF, C/O FREQUENT URINATION. PATIENT PRESENTS TO ED WITH REPORTS OF VAGINAL DC AND BURNING. DENIES N/V/D; SKIN IS PINK/WARM/DRY; AAOX4 WITH EVEN AND STEADY GAIT; LUNGS CLEAR BL; HR EVEN AND REGULAR; PT DENIES ANY FEVER, CP, SOB, OR COUGH AT THIS TIME; PATIENT STATES PAIN OF 0/10 AT THIS TIME; VSS; PATIENT POSITIONED FOR COMFORT; HOB ELEVATED; BEDRAILS UP X2; BED DOWN. ER MD MADE AWARE OF PT STATUS. HX: HTN, COPD, CHF, ASTHMA NKA
[2021-06-24 00:07] VITALS: BP 153/86
--- NOTE | 2021-06-24 00:07 | NUR ---
Patient discharged with v/s stable. Written and verbal after care instructions given and explained. Patient alert, oriented and verbalized understanding of instructions. Ambulatory with steady gait. All questions addressed prior to discharge. ID band removed. Patient advised to follow up with PMD. Rx of VIBRAMYCIN given. Patient educated on indication of medication including possible reaction and side effects. Opportunity to ask questions provided and answered. VSS, A/OX4, UNLABORED BREATHING, AMBULATORY, AND CALM DEMEANOR.
== END 2021-06-24 00:07 | disposition home or self-care (01) ==
LOC: MED 19:09
DX: N72 Inflammatory disease of cervix uteri (principal); R30.0 Dysuria; N89.8 Other specified noninflammatory disorders of vagina; I11.0 Hypertensive heart disease with heart failure; I50.9 Heart failure, unspecified; J44.9 Chronic obstructive pulmonary disease, unspecified; Z88.5 Allergy status to narcotic agent; Z90.49 Acquired absence of other specified parts of digestive tract; Z98.890 Other specified postprocedural states; Z79.899 Other long term (current) drug therapy
CPT/HCPCS: 36415; 81001; 87210; 87491; 96365; 99284; J0696

== ENCOUNTER 2021-06-26 22:44 | Emergency (ER) | payer OTHER ==
[~2021-06-26] VITALS: Ht 167.6 cm; Wt 93.4 kg
[~2021-06-26 22:44] MED LIST changes: +DOXY-690 PO
[2021-06-26 23:10] VITALS: BP 154/84
--- NOTE | 2021-06-26 23:20 | NUR ---
PT TAKEN TO ER BED 05
--- NOTE | 2021-06-26 23:43 | NUR ---
ERMD WITH PT AT BEDSIDE.
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
--- NOTE | 2021-06-27 | NUR ---
ICE PACKS PROVIDED TO PT PER REQUEST.
[2021-06-27] MEDS ORDERED: DEXAMETHASONE 4 MG/ML VIAL PO ONE (00:05)
[2021-06-27] MEDS ORDERED: FAMOTIDINE 20 MG TAB PO ONE (00:05)
--- NOTE | 2021-06-27 00:18 | NUR ---
ADMINISTERED PO MEDS PER ERMD ORDER. TOLERATED WELL.
[2021-06-27 00:33] VITALS: BP 129/99
--- NOTE | 2021-06-27 00:33 | NUR ---
Patient discharged with v/s stable. Written and verbal after care instructions given and explained. Patient verbalized understanding. Ambulatory with steady gait. All questions addressed prior to discharge. ID BAND REMOVED. CRANBERRY JUICE X2 PROVIDED. Advised to follow up with PMD.
--- NOTE | 2021-06-27 00:34 | NUR ---
The patient's care was reviewed and supervised by Carolyn De La Torre RN, RN.
== END 2021-06-27 00:33 | disposition home or self-care (01) ==
LOC: MED 22:44
DX: T78.40XA Allergy, unspecified, initial encounter (principal); R21 Rash and other nonspecific skin eruption; J44.9 Chronic obstructive pulmonary disease, unspecified; I10 Essential (primary) hypertension; Z98.890 Other specified postprocedural states; X58.XXXA Exposure to other specified factors, initial encounter
CPT/HCPCS: 99284; J1100; Q0163

== ENCOUNTER 2021-07-01 04:12 | Emergency (ER) | payer OTHER ==
[~2021-07-01] VITALS: Ht 167.6 cm; Wt 93.4 kg
[2021-07-01 04:16] VITALS: BP 126/79
--- NOTE | 2021-07-01 04:16 | NUR ---
Dr. Croft at triage to exam patient.
[2021-07-01] MEDS ORDERED: KETOROLAC 60 MG/2 ML VIAL IM ONE (04:20)
--- NOTE | 2021-07-01 04:27 | NUR ---
PT TO XRAY VIA WHEEL CHAIR.
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
[2021-07-01 05:08] VITALS: BP 126/79
--- NOTE | 2021-07-01 05:09 | NUR ---
Patient discharged with v/s stable. PT WAS NOT ABLE TO SIGN DISCHARGE PAPER. ERMD AUTHORIZED. PT LEFT WITH Ambulatory with steady gait. All questions addressed prior to discharge. Advised to follow up with PMD.
--- NOTE | 2021-07-01 06:36 | NUR ---
PT RETURNED FOR DISCHARGE PAPERWORK AND WORK NOTE AT THIS TIME.
[2021-07-02] MEDS ORDERED: ACET-10509 PO (01:53)
== END 2021-07-01 05:09 | disposition home or self-care (01) ==
LOC: MED 04:12
DX: S93.402A Sprain of unspecified ligament of left ankle, initial encounter (principal); I11.0 Hypertensive heart disease with heart failure; J44.9 Chronic obstructive pulmonary disease, unspecified; Z88.5 Allergy status to narcotic agent; X50.0XXA Overexertion from strenuous movement or load, initial encounter; Y93.89 Activity, other specified; Y92.89 Other specified places as the place of occurrence of the external cause; Y99.8 Other external cause status
CPT/HCPCS: 73610; 96372; 99283; J1885

== ENCOUNTER 2021-07-01 22:15 | Emergency (ER) | payer OTHER ==
[~2021-07-01] VITALS: Ht 167.6 cm; Wt 93.4 kg
[2021-07-01 22:19] VITALS: BP 162/91
[2021-07-01 23:28] LABS: BASOPHILS # (AUTO) 0.1 K/uL (0.00-0.22); BASOPHILS % (AUTO) 0.6 % (0.0-2.0); EOSINOPHILS # (AUTO) 0.3 K/uL (0-0.4); EOSINOPHILS % (AUTO) 2.4 % (0.0-4.0); HEMATOCRIT 37.4 % (36-48); HEMOGLOBIN 12.4 g/dL (12.0-16.0); LYMPHOCYTES # (AUTO) 2.8 K/uL (2.5-16.5); LYMPHOCYTES % (AUTO) 25.3 % (20.5-51.1); MEAN CORPUSCULAR HEMOGLOBIN 30 pg (27-31); MEAN CORPUSCULAR HGB CONC 33 g/dL (33-37); MEAN CORPUSCULAR VOLUME 88.9 fL (80-94); MONOCYTES % (AUTO) 8.8 % (1.7-9.3); NEUTROPHILS # (AUTO) 6.9 K/uL (1.8-7.7); NEUTROPHILS % (AUTO) 62.9 % (42.2-75.2); PLATELET COUNT (AUTO) 314 K/uL (140-450); RED CELL DISTRIBUTION WIDTH 14.9 % (11.6-13.7); WHITE BLOOD COUNT (AUTO) 10.9 K/uL (4.8-10.8)
[2021-07-01 23:50] LABS: ALBUMIN 3.3 g/dL (3.4-5.0); ANION GAP 10.9 (8-16); CREATININE 0.8 mg/dL (0.6-1.3); POTASSIUM 3.9 mmol/L (3.5-5.1); TOTAL BILIRUBIN 0.3 mg/dL (0.0-1.0)
--- NOTE | 2021-07-02 00:59 | NUR ---
ATTEMPTED TO DISCHARGE PATIENT, PATIENT NOT IN LOBBY.
[2021-07-02 01:00] VITALS: BP 154/82
--- NOTE | 2021-07-02 01:50 | NUR ---
Patient discharged with v/s stable. Written and verbal after care instructions given and explained. Patient alert, oriented and verbalized understanding of instructions. Ambulatory with steady gait. All questions addressed prior to discharge. ID band removed. Patient advised to follow up with PMD. Rx of Tylrmol given. Patient educated on indication of medication including possible reaction and side effects. Opportunity to ask questions provided and answered.
[2021-07-02] MEDS ORDERED: ACET-10509 PO (01:53)
== END 2021-07-02 01:50 | disposition home or self-care (01) ==
LOC: MED 22:15
DX: E86.0 Dehydration (principal); K13.29 Other disturbances of oral epithelium, including tongue; J44.9 Chronic obstructive pulmonary disease, unspecified; I11.0 Hypertensive heart disease with heart failure; I50.9 Heart failure, unspecified; Z79.899 Other long term (current) drug therapy; Z79.1 Long term (current) use of non-steroidal anti-inflammatories (NSAID); Z79.2 Long term (current) use of antibiotics; Z79.891 Long term (current) use of opiate analgesic; Z88.5 Allergy status to narcotic agent
CPT/HCPCS: 36415; 80053; 85025; 99283

== ENCOUNTER 2021-07-23 08:25 | Emergency (ER) | payer OTHER ==
[~2021-07-23] VITALS: Ht 167.6 cm; Wt 92.5 kg
[~2021-07-23 08:25] MED LIST changes: +ACET-10509 PO
[2021-07-23 08:29] VITALS: BP 132/87
--- NOTE | 2021-07-23 08:31 | NUR ---
60 Y/O FEMALE BIB SELF C/O MID BACK PAIN X3 DAYS. PAIN IS A SHARP WHICH INCREASES WITH MOVEMENT. PT DENIES ANY RECENT INJURY OR TRAUMA. 1010 PAIN. PT DENIES CHEST PAIN, SOB, FEVER OR CHILLS. PT DENIED N/V/D. MEDHX: ASTHMA, HTN, COPD, SLEEP APNEA, CHF ALLERGIES: CODIENJaden
--- NOTE | 2021-07-23 09:55 | NUR ---
DR. DENNY AT PT BEDSIDE
[2021-07-23] MEDS ORDERED: LIDOCAINE MPF 1% 10 MG/ML VIAL INJ ONE (10:00)
[2021-07-23] MEDS ORDERED: IBUP-1842 PO (10:44)
[2021-07-23 11:09] VITALS: BP 132/87
== END 2021-07-23 11:10 | disposition home or self-care (01) ==
LOC: MED 08:25
DX: M54.6 Pain in thoracic spine (principal); R05.9 Cough, unspecified; J44.9 Chronic obstructive pulmonary disease, unspecified; I11.0 Hypertensive heart disease with heart failure; I50.9 Heart failure, unspecified; Z79.899 Other long term (current) drug therapy; Z88.5 Allergy status to narcotic agent
CPT/HCPCS: 99282; J2001

== ENCOUNTER 2021-11-03 00:40 | Emergency (ER) | payer OTHER ==
[~2021-11-03] VITALS: Ht 165.1 cm; Wt 97.1 kg
[~2021-11-03 00:40] MED LIST changes: +IBUP-1842 PO
[2021-11-03 01:23] VITALS: BP 147/96
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
--- NOTE | 2021-11-03 04:26 | NUR ---
Dr. Sawyer examining patient.
[2021-11-03] MEDS ORDERED: KETOROLAC 30 MG/ML VIAL IM ONE (04:35)
--- NOTE | 2021-11-03 04:37 | NUR ---
PT TAKEN TO XRAY
[2021-11-03] MEDS ORDERED: NAPR-1871 PO (05:26)
[2021-11-03] MEDS ORDERED: LID5T TP (05:26)
[2021-11-03] MEDS ORDERED: TRAM50TA1 PO (05:27)
[2021-11-03 05:38] VITALS: BP 136/85
--- NOTE | 2021-11-03 05:38 | NUR ---
Patient discharged with v/s stable. Written and verbal after care instructions given and explained. Patient alert, oriented and verbalized understanding of instructions. Ambulatory with steady gait. All questions addressed prior to discharge. ID band removed. Patient advised to follow up with PMD. Rx of Lidocaine patch, Naproxen and Tramadol given. Patient educated on indication of medication including possible reaction and side effects. Opportunity to ask questions provided and answered.
== END 2021-11-03 05:48 | disposition home or self-care (01) ==
LOC: MED 00:40
DX: S20.211A Contusion of right front wall of thorax, initial encounter (principal); J44.9 Chronic obstructive pulmonary disease, unspecified; J45.909 Unspecified asthma, uncomplicated; I50.9 Heart failure, unspecified; I10 Essential (primary) hypertension; Z88.5 Allergy status to narcotic agent; V49.88XA Car occupant (driver) (passenger) injured in other specified transport accidents, initial encounter; Y93.89 Activity, other specified; Y92.89 Other specified places as the place of occurrence of the external cause; Y99.8 Other external cause status
CPT/HCPCS: 71100; 96372; 99283; J1885

== ENCOUNTER 2021-11-05 01:25 | Emergency (ER) | payer OTHER ==
[~2021-11-05] VITALS: Ht 165.1 cm; Wt 97.1 kg
[~2021-11-05 01:25] MED LIST changes: +NAPR-1871 PO; +TRAM50TA1 PO
[2021-11-05 01:30] VITALS: BP 143/73
--- NOTE | 2021-11-05 01:33 | NUR ---
TO LOBBY A/W BED AMBULATORY
--- NOTE | 2021-11-05 02:20 | NUR ---
PT TO BED #2
[2021-11-05] MEDS ORDERED: KETOROLAC 60 MG/2 ML VIAL IM ONE (02:30)
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
[2021-11-05] MEDS ORDERED: ACET-8386 PO (03:43)
[2021-11-05 04:15] VITALS: BP 143/73
--- NOTE | 2021-11-05 04:15 | NUR ---
Patient discharged with v/s stable. Written and verbal after care instructions given and explained. Patient alert, oriented and verbalized understanding of instructions. Ambulatory with steady gait. All questions addressed prior to discharge. ID band removed. Patient advised to follow up with PMD. Rx of HYDROCODONE given. Patient educated on indication of medication including possible reaction and side effects. Opportunity to ask questions provided and answered.
== END 2021-11-05 04:15 | disposition home or self-care (01) ==
LOC: MED 01:25
DX: M79.651 Pain in right thigh (principal); J45.909 Unspecified asthma, uncomplicated; J44.9 Chronic obstructive pulmonary disease, unspecified; I50.9 Heart failure, unspecified; I10 Essential (primary) hypertension; Z79.899 Other long term (current) drug therapy; Z90.49 Acquired absence of other specified parts of digestive tract; Z88.5 Allergy status to narcotic agent; V49.88XA Car occupant (driver) (passenger) injured in other specified transport accidents, initial encounter; Y93.89 Activity, other specified; Y92.89 Other specified places as the place of occurrence of the external cause; Y99.8 Other external cause status
CPT/HCPCS: 96372; 99283; J1885

== ENCOUNTER 2021-11-08 02:43 | Emergency (ER) | payer OTHER ==
[~2021-11-08] VITALS: Ht 165.1 cm; Wt 97.1 kg
[~2021-11-08 02:43] MED LIST changes: +ACET-8386 PO
[2021-11-08 03:20] VITALS: BP 150/90
--- NOTE | 2021-11-08 03:23 | NUR ---
TO LOBBY A/W BED AMBULATORY
--- NOTE | 2021-11-08 05:19 | NUR ---
PT TAKEN TO CHAIR A
--- NOTE | 2021-11-08 05:40 | NUR ---
SEEN AND EXAMINED BY ROMAN
[2021-11-08] MEDS ORDERED: CYCL-711 PO (05:46)
[2021-11-08 05:55] VITALS: BP 138/85
--- NOTE | 2021-11-08 05:58 | NUR ---
Patient discharged with v/s stable BY ERMD. Written and verbal after care instructions given and explained. Patient verbalized understanding. Ambulatory with steady gait. All questions addressed prior to discharge. Advised to follow up with PMD. AND TAKING FLEXERIL PO
== END 2021-11-08 05:58 | disposition home or self-care (01) ==
LOC: MED 02:43
DX: S63.502A Unspecified sprain of left wrist, initial encounter (principal); J44.9 Chronic obstructive pulmonary disease, unspecified; I11.0 Hypertensive heart disease with heart failure; I50.9 Heart failure, unspecified; Z88.5 Allergy status to narcotic agent; Z79.899 Other long term (current) drug therapy; V89.2XXA Person injured in unspecified motor-vehicle accident, traffic, initial encounter; Y93.89 Activity, other specified; Y92.89 Other specified places as the place of occurrence of the external cause; Y99.8 Other external cause status
CPT/HCPCS: 73110; 99283

== ENCOUNTER 2021-11-13 20:21 | Emergency (ER) | payer OTHER ==
[~2021-11-13] VITALS: Ht 165.1 cm; Wt 97.2 kg
[~2021-11-13 20:21] MED LIST changes: +CYCL-711 PO
[2021-11-13 20:30] VITALS: BP 155/93
--- NOTE | 2021-11-13 20:37 | NUR ---
PT TO LOBBY FOLLOWING URINE COLLECTION
[2021-11-13 21:25] LABS: BASOPHILS # (AUTO) 0.1 K/uL (0.00-0.22); BASOPHILS % (AUTO) 1.2 % (0.0-2.0); EOSINOPHILS # (AUTO) 0.2 K/uL (0-0.4); EOSINOPHILS % (AUTO) 1.9 % (0.0-4.0); HEMATOCRIT 39.5 % (36-48); HEMOGLOBIN 13.3 g/dL (12.0-16.0); LYMPHOCYTES # (AUTO) 2.4 K/uL (2.5-16.5); LYMPHOCYTES % (AUTO) 28.5 % (20.5-51.1); MEAN CORPUSCULAR HEMOGLOBIN 29 pg (27-31); MEAN CORPUSCULAR HGB CONC 34 g/dL (33-37); MEAN CORPUSCULAR VOLUME 87.1 fL (80-94); MONOCYTES # (AUTO) 0.7 K/uL (0.8-1.0); NEUTROPHILS # (AUTO) 5.1 K/uL (1.8-7.7); NEUTROPHILS % (AUTO) 60.4 % (42.2-75.2); PLATELET COUNT (AUTO) 260 K/uL (140-450); RED BLOOD CELL COUNT(AUTO) 4.54 MIL/uL (4.20-5.40); RED CELL DISTRIBUTION WIDTH 14.7 % (11.6-13.7); WHITE BLOOD COUNT (AUTO) 8.4 K/uL (4.8-10.8)
[2021-11-13 21:39] LABS: ALBUMIN 3.6 g/dL (3.4-5.0); ANION GAP 12.1 (8-16); CARBON DIOXIDE 29.1 mmol/L (21-32); POTASSIUM 3.2 mmol/L (3.5-5.1); TOTAL BILIRUBIN 0.2 mg/dL (0.0-1.0)
--- NOTE | 2021-11-13 23:09 | NUR ---
PT AMBULATED WITH NURSE TO ER BED 4
--- NOTE | 2021-11-13 23:20 | NUR ---
PT TO CT VIA [facility].
--- NOTE | 2021-11-13 23:32 | NUR ---
61 Y/O F BIB SELF C/O 01/05 RT ABD PAIN WITH BLOATING X LAST WEEK S/P TC. HX:COPD, HTN, ASTHMA, SLEEP APNEA RX:BENAZIPRIL, ZOLOFT, OXYBUTIN ALLERGY:CODEINE
[2021-11-14] MEDS ORDERED: diazePAM 5 MG TAB PO ONE
--- NOTE | 2021-11-14 00:03 | NUR ---
DR MACIAS AT BEDSIDE.
[2021-11-14] MEDS ORDERED: diazePAM 5 MG TAB ONE (00:06)
[2021-11-14 03:57] VITALS: BP 128/76
--- NOTE | 2021-11-14 04:00 | NUR ---
The patient's care was reviewed and supervised by Rut Goldstein RN, RN.
== END 2021-11-14 03:58 | disposition home or self-care (01) ==
LOC: MED 20:21
DX: R10.9 Unspecified abdominal pain (principal); R07.81 Pleurodynia; R45.0 Nervousness; R11.0 Nausea; J44.9 Chronic obstructive pulmonary disease, unspecified; I11.0 Hypertensive heart disease with heart failure; I50.9 Heart failure, unspecified; Z88.5 Allergy status to narcotic agent; Z79.899 Other long term (current) drug therapy
CPT/HCPCS: 36415; 80053; 81002; 81025; 83690; 85025; 99284

== ENCOUNTER 2021-11-26 02:35 | Emergency (ER) | payer OTHER ==
[~2021-11-26] VITALS: Ht 165.1 cm; Wt 97.1 kg
[2021-11-26 02:41] VITALS: BP 140/74
--- NOTE | 2021-11-26 02:44 | NUR ---
TO BED AMBULATORY
--- NOTE | 2021-11-26 02:51 | NUR ---
Dr. Denton examining patient.
[2021-11-26] MEDS ORDERED: KETOROLAC 60 MG/2 ML VIAL IM ONE (02:55)
[2021-11-26] MEDS ORDERED: CYCL-711 PO (03:00)
[2021-11-26] MEDS ORDERED: KETO10TA2 PO (03:00)
--- NOTE | 2021-11-26 03:15 | NUR ---
BACK PAIN, STARTED YESTERDAY, NO TRAUMA NOR INJURY
[2021-11-26 03:25] VITALS: BP 140/74
--- NOTE | 2021-11-26 03:25 | NUR ---
Patient discharged with v/s stable. Written and verbal after care instructions given and explained. Patient alert, oriented and verbalized understanding of instructions. Ambulatory with steady gait. All questions addressed prior to discharge. ID band removed. Patient advised to follow up with PMD. Rx of FLEXERIL, AND TORADOL given. Patient educated on indication of medication including possible reaction and side effects. Opportunity to ask questions provided and answered.
== END 2021-11-26 03:25 | disposition home or self-care (01) ==
LOC: MED 02:35
DX: M54.6 Pain in thoracic spine (principal); J44.9 Chronic obstructive pulmonary disease, unspecified; I11.0 Hypertensive heart disease with heart failure; I50.9 Heart failure, unspecified; E66.01 Morbid (severe) obesity due to excess calories; Z79.899 Other long term (current) drug therapy; Z88.5 Allergy status to narcotic agent; Z68.35 Body mass index [BMI] 35.0-35.9, adult
CPT/HCPCS: 99283; J1885

== ENCOUNTER 2022-03-30 21:36 | Emergency (ER) | payer OTHER ==
[~2022-03-30] VITALS: Ht 167.6 cm; Wt 90.7 kg
[~2022-03-30 21:36] MED LIST changes: -ACET-10509 PO; -ACET-8386 PO; +ACET-8905 PO; -CETI10TA71 PO; -CYCL-654 PO; -DICL100G5 TP; -DOCU-299 PO; -DOXY-690 PO; -IBUP-1842 PO; +KETO10TA2 PO; -LORA1TAB7 PO; -MELO15TA11 PO; -NAPR-1717 PO; -NAPR-1871 PO; +TRAM-748 PO; -TRAM50TA1 PO
[2022-03-30 22:08] VITALS: BP 167/110
--- NOTE | 2022-03-30 23:47 | NUR ---
Swabs taken and given to lab
[2022-03-30 23:49] LABS: BASOPHILS # (AUTO) 0.1 K/uL (0.00-0.22); EOSINOPHILS # (AUTO) 0.2 K/uL (0-0.4); EOSINOPHILS % (AUTO) 2.1 % (0.0-4.0); HEMATOCRIT 39.1 % (36-48); HEMOGLOBIN 13.2 g/dL (12.0-16.0); LYMPHOCYTES # (AUTO) 3.2 K/uL (2.5-16.5); MEAN CORPUSCULAR HEMOGLOBIN 30 pg (27-31); MEAN CORPUSCULAR HGB CONC 34 g/dL (33-37); MONOCYTES # (AUTO) 0.9 K/uL (0.8-1.0); MONOCYTES % (AUTO) 8.5 % (1.7-9.3); NEUTROPHILS # (AUTO) 5.8 K/uL (1.8-7.7); NEUTROPHILS % (AUTO) 57.4 % (42.2-75.2); PLATELET COUNT (AUTO) 293 K/uL (140-450); RED BLOOD CELL COUNT(AUTO) 4.44 MIL/uL (4.20-5.40); RED CELL DISTRIBUTION WIDTH 14.8 % (11.6-13.7); WHITE BLOOD COUNT (AUTO) 10.2 K/uL (4.8-10.8)
[2022-03-31 00:04] LABS: ALBUMIN 3.5 g/dL (3.4-5.0); ANION GAP 12.2 (8-16); ASPARTATE AMINOTRANSFERASE 19 U/L (15-37); CARBON DIOXIDE 30.2 mmol/L (21-32); CHLORIDE 102 mmol/L (98-107); CREATININE 0.8 mg/dL (0.6-1.3); GFR ARICAN-AMERICAN 94 mL/min (>90); GLUCOSE 112 mg/dL (74-106); POTASSIUM 3.4 mmol/L (3.5-5.1); SODIUM SERUM 141 mmol/L (136-145); TOTAL BILIRUBIN 0.2 mg/dL (0.0-1.0); UREA NITROGEN, BLOOD 14 mg/dL (7-18)
[2022-03-31 00:09] LABS: SALICYLATE < 2.8 mg/dL (2.8-20.0)
[2022-03-31 00:10] LABS: ACETAMINOPHEN < 0.5 ug/ml (10-30)
[2022-03-31 00:29] LABS: BARBITURATE, URINE NEGATIVE ng/ml (NEG <=200); BENZODIAZEPINE, URINE NEGATIVE ng/mL (NEG <=200); CANNABINOID, URINE NEGATIVE ng/mL (NEG <=50); COCAINE, URINE NEGATIVE ng/mL (NEG <=300); PHENCYCLIDINE SCREEN,URINE NEGATIVE ng/mL (NEG <=25)
[2022-03-31 00:35] LABS: OPIATE, URINE NEGATIVE ng/mL (NEG <=2000)
[2022-03-31] MEDS ORDERED: HYDROcodone/APAP 5/325 MG 1 TAB TAB PO ONE (02:10)
--- NOTE | 2022-03-31 02:40 | NUR ---
ULTRASOUND AT BEDSIDE
[2022-03-31] MEDS ORDERED: IBUP-2213 PO (03:17)
[2022-03-31] MEDS ORDERED: LID5T TP (03:17)
[2022-03-31 03:26] VITALS: BP 143/91
--- NOTE | 2022-03-31 03:26 | NUR ---
Patient discharged. Written and verbal after care instructions given and explained. Patient alert, oriented and verbalized understanding of instructions. Ambulatory with steady gait. All questions addressed prior to discharge. ID band removed. Patient advised to follow up with PMD. Rx of lidocain Hyd and ibuprofen given. Patient educated on indication of medication including possible reaction and side effects. Opportunity to ask questions provided and answered.
== END 2022-03-31 03:26 | disposition home or self-care (01) ==
LOC: MED 21:36
DX: S80.12XA Contusion of left lower leg, initial encounter (principal); Z20.822 Contact with and (suspected) exposure to COVID-19; J44.9 Chronic obstructive pulmonary disease, unspecified; I11.0 Hypertensive heart disease with heart failure; I50.9 Heart failure, unspecified; Z88.5 Allergy status to narcotic agent; Z79.899 Other long term (current) drug therapy; W19.XXXA Unspecified fall, initial encounter; Y93.89 Activity, other specified; Y92.89 Other specified places as the place of occurrence of the external cause; Y99.8 Other external cause status
CPT/HCPCS: 36415; 73590; 73610; 80053; 80305; 85025; 87426; 93971; 99285; G0480; G0482; Q0092

== ENCOUNTER 2022-04-05 01:39 | Emergency (ER) | payer OTHER ==
[~2022-04-05] VITALS: Ht 167.6 cm; Wt 95.3 kg
[~2022-04-05 01:39] MED LIST changes: +IBUP-2213 PO
[2022-04-05 01:55] VITALS: BP 142/75
--- NOTE | 2022-04-05 02:25 | NUR ---
ROMAN ROSS ASSESSING PT IN CHAIR
[2022-04-05] MEDS ORDERED: [UNRECOGNIZED DRUG - CODE] MC (02:27)
--- NOTE | 2022-04-05 02:32 | NUR ---
PT SEEN AND ASSESSED BY ROMAN ROSS.
[2022-04-05 02:33] VITALS: BP 142/75
--- NOTE | 2022-04-05 02:33 | NUR ---
Written and verbal after care instructions given and explained. Patient alert, oriented and verbalized understanding of instructions. Ambulatory with steady gait. All questions addressed prior to discharge. ID band removed. Patient advised to follow up with PMD. Rx of COMPRESSION SOCKS, MEDIUM given. Patient educated on indication of medication including possible reaction and side effects. Opportunity to ask questions provided and answered.
== END 2022-04-05 02:33 | disposition home or self-care (01) ==
LOC: MED 01:39
DX: M79.89 Other specified soft tissue disorders (principal); M54.50 Low back pain, unspecified; J44.9 Chronic obstructive pulmonary disease, unspecified; I50.9 Heart failure, unspecified; J45.909 Unspecified asthma, uncomplicated; I10 Essential (primary) hypertension; Z79.899 Other long term (current) drug therapy; Z88.5 Allergy status to narcotic agent
CPT/HCPCS: 99282

== ENCOUNTER 2022-04-11 00:20 | Emergency (ER) | payer OTHER ==
[~2022-04-11] VITALS: Ht 167.6 cm; Wt 95.3 kg
[~2022-04-11 00:20] MED LIST changes: +[UNRECOGNIZED DRUG - CODE] MC
--- NOTE | 2022-04-11 01:16 | NUR ---
Called no show in lobby or outside.
[2022-04-11 01:27] VITALS: BP 125/71
--- NOTE | 2022-04-11 06:30 | NUR ---
Dr. Cochran examining patient.
[2022-04-11] MEDS ORDERED: ACETAMINOPHEN 325 MG TAB PO ONE (06:40)
[2022-04-11] MEDS ORDERED: ACET-10509 PO (06:44)
[2022-04-11 06:55] VITALS: BP 125/71
== END 2022-04-11 06:55 | disposition home or self-care (01) ==
LOC: MED 00:20
DX: R60.9 Edema, unspecified (principal); R68.84 Jaw pain; J44.9 Chronic obstructive pulmonary disease, unspecified; I11.0 Hypertensive heart disease with heart failure; I50.9 Heart failure, unspecified; Z79.899 Other long term (current) drug therapy; Z88.5 Allergy status to narcotic agent
CPT/HCPCS: 99282

== ENCOUNTER 2022-04-16 02:30 | Emergency (ER) | payer OTHER ==
[~2022-04-16] VITALS: Ht 167.6 cm; Wt 90.3 kg
[~2022-04-16 02:30] MED LIST changes: +ACET-10509 PO
[2022-04-16 02:40] VITALS: BP 164/89
--- NOTE | 2022-04-16 02:52 | NUR ---
PT TO 11
[2022-04-16] MEDS ORDERED: KETOROLAC 60 MG/2 ML VIAL IM ONE (02:55)
--- NOTE | 2022-04-16 02:57 | NUR ---
Patient being evaluated by physician at bedside.
[2022-04-16] MEDS ORDERED: ACET-8905 PO (03:08)
--- NOTE | 2022-04-16 03:25 | NUR ---
Patient discharged with v/s stable. Written and verbal after care instructions given and explained. Patient alert, oriented and verbalized understanding of instructions. Ambulatory with steady gait. All questions addressed prior to discharge. ID band removed. Patient advised to follow up with PMD. Rx of hydrocodone 5-325 given. Opportunity to ask questions provided and answered.
== END 2022-04-16 03:25 | disposition home or self-care (01) ==
LOC: MED 02:30
DX: R60.9 Edema, unspecified (principal); J45.909 Unspecified asthma, uncomplicated; I10 Essential (primary) hypertension; I50.9 Heart failure, unspecified; J44.9 Chronic obstructive pulmonary disease, unspecified; Z79.899 Other long term (current) drug therapy
CPT/HCPCS: 96372; 99283; J1885

== ENCOUNTER 2022-04-22 20:15 | Emergency (ER) | payer OTHER ==
[~2022-04-22] VITALS: Ht 165.1 cm; Wt 95.0 kg
[2022-04-22 20:50] VITALS: BP 144/82
[2022-04-22] MEDS ORDERED: BUME1TAB92 PO ×2 (21:06→21:29)
[2022-04-22 21:29] VITALS: BP 144/94
== END 2022-04-22 21:29 | disposition home or self-care (01) ==
LOC: MED 20:15
DX: R60.0 Localized edema (principal); I11.0 Hypertensive heart disease with heart failure; I50.9 Heart failure, unspecified; J44.9 Chronic obstructive pulmonary disease, unspecified; Z79.899 Other long term (current) drug therapy; Z88.5 Allergy status to narcotic agent
CPT/HCPCS: 99281

== ENCOUNTER 2022-12-08 03:20 | Emergency (ER) | payer OTHER ==
[~2022-12-08] VITALS: Ht 165.1 cm; Wt 91.2 kg
[~2022-12-08 03:20] MED LIST changes: +BUME1TAB92 PO
[2022-12-08 03:31] VITALS: BP 145/92; PULSE 81; RESP 16; TEMP 97.8; O2SAT 97
[2022-12-08 07:20] VITALS: BP 136/91; PULSE 78; RESP 16; O2SAT 97
== END 2022-12-08 07:20 | disposition home or self-care (01) ==
LOC: MED 03:20
DX: M54.2 Cervicalgia (principal); I25.10 Atherosclerotic heart disease of native coronary artery without angina pectoris; Z79.899 Other long term (current) drug therapy
CPT/HCPCS: 72125; 99284

== ENCOUNTER 2023-05-07 01:05 | Emergency (ER) | payer OTHER ==
[~2023-05-07] VITALS: Ht 165.1 cm; Wt 90.3 kg
[2023-05-07 01:10] VITALS: BP 150/101; PULSE 68; RESP 16; TEMP 97.1
[2023-05-07] MEDS: KETOROLAC 30 MG/ML VIAL IM ONE (02:07)
[2023-05-07] MEDS: LIDOCAINE 5% 1 EA PATCH TP ONE (02:08)
[2023-05-07] MEDS: ACETAMINOPHEN EXTRA STRENGTH 500 MG TAB PO ONE (02:08)
[2023-05-07] MEDS: ONDANSETRON 4 MG ODT PO ONE (02:11)
[2023-05-07] MEDS ORDERED: IBUP-2213 PO (03:15)
[2023-05-07] MEDS ORDERED: CYCL-711 PO (03:15)
== END 2023-05-07 03:23 | disposition home or self-care (01) ==
LOC: MED 01:05
DX: S39.012A Strain of muscle, fascia and tendon of lower back, initial encounter (principal); S13.4XXA Sprain of ligaments of cervical spine, initial encounter; Z79.899 Other long term (current) drug therapy; X58.XXXA Exposure to other specified factors, initial encounter; Y93.89 Activity, other specified; Y92.89 Other specified places as the place of occurrence of the external cause; Y99.8 Other external cause status
CPT/HCPCS: 96372; 99284; J1885; Q0162

== ENCOUNTER 2023-05-09 23:25 | Emergency (ER) | payer OTHER ==
[~2023-05-09] VITALS: Ht 165.1 cm; Wt 90.3 kg
[2023-05-09 23:55] VITALS: BP 168/94; PULSE 84; RESP 16; TEMP 98.4; O2SAT 99
[2023-05-10] MEDS: KETOROLAC 60 MG/2 ML VIAL IM ONE (01:26)
[2023-05-10] MEDS ORDERED: LIDO5TDM59 TP (01:48)
[2023-05-10 01:50] VITALS: BP 120/80; PULSE 84; RESP 16; TEMP 98.4; O2SAT 99
== END 2023-05-10 01:50 | disposition home or self-care (01) ==
LOC: MED 23:25
DX: S13.4XXA Sprain of ligaments of cervical spine, initial encounter (principal); S23.3XXA Sprain of ligaments of thoracic spine, initial encounter; S33.5XXA Sprain of ligaments of lumbar spine, initial encounter; J44.9 Chronic obstructive pulmonary disease, unspecified; E11.9 Type 2 diabetes mellitus without complications; I10 Essential (primary) hypertension; F32.9 Major depressive disorder, single episode, unspecified; Z79.899 Other long term (current) drug therapy; Z79.1 Long term (current) use of non-steroidal anti-inflammatories (NSAID); Z79.82 Long term (current) use of aspirin; Z88.5 Allergy status to narcotic agent; X58.XXXA Exposure to other specified factors, initial encounter; Y92.89 Other specified places as the place of occurrence of the external cause; Y93.89 Activity, other specified; Y99.8 Other external cause status
CPT/HCPCS: 96372; 99283; J1885

== ENCOUNTER 2023-05-14 01:24 | Emergency (ER) | payer OTHER ==
[~2023-05-14] VITALS: Ht 165.1 cm; Wt 86.2 kg
[~2023-05-14 01:24] MED LIST changes: +LIDO5TDM59 TP
[2023-05-14 01:48] VITALS: BP 149/82; PULSE 89; RESP 18; TEMP 97; O2SAT 97
[2023-05-14 03:08] LABS: BASOPHILS # (AUTO) 0.1 K/uL (0.00-0.22); EOSINOPHILS # (AUTO) 0.2 K/uL (0-0.4); EOSINOPHILS % (AUTO) 2.5 % (0.0-4.0); HEMATOCRIT 39.3 % (36-48); HEMOGLOBIN 13.2 g/dL (12.0-16.0); LYMPHOCYTES # (AUTO) 2.9 K/uL (2.5-16.5); LYMPHOCYTES % (AUTO) 32.6 % (20.5-51.1); MEAN CORPUSCULAR HEMOGLOBIN 30 pg (27-31); MEAN CORPUSCULAR HGB CONC 34 g/dL (33-37); MEAN CORPUSCULAR VOLUME 88.4 fL (80-94); MONOCYTES # (AUTO) 0.8 K/uL (0.8-1.0); MONOCYTES % (AUTO) 8.8 % (1.7-9.3); NEUTROPHILS # (AUTO) 4.9 K/uL (1.8-7.7); NEUTROPHILS % (AUTO) 55.1 % (42.2-75.2); PLATELET COUNT (AUTO) 263 K/uL (140-450); RED BLOOD CELL COUNT(AUTO) 4.44 MIL/uL (4.20-5.40); RED CELL DISTRIBUTION WIDTH 14.3 % (11.6-13.7)
[2023-05-14 03:17] LABS: ANION GAP 12.6 (8-16); CALCIUM 9.1 mg/dL (8.5-10.1); CARBON DIOXIDE 29.2 mmol/L (21-32); POTASSIUM 3.8 mmol/L (3.5-5.1)
[2023-05-14 03:22] LABS: ALBUMIN 3.4 g/dL (3.4-5.0); BILIRUBIN,DIRECT 0.1 mg/dL (0.0-0.3); TOTAL BILIRUBIN 0.3 mg/dL (0.0-1.0); TOTAL PROTEIN, SERUM 8.3 g/dL (6.4-8.2)
[2023-05-14 03:23] LABS: APPEARANCE,URINE CLEAR (CLEAR); BILIRUBIN,URINE NEGATIVE (NEGATIVE); BLOOD, URINE NEGATIVE (NEGATIVE); COLOR,URINE YELLOW (YELLOW); LEUKOCYTE ESTERASE ,URINE NEGATIVE (NEGATIVE); NITRITE, URINE NEGATIVE (NEGATIVE); PROTEIN,URINE NEGATIVE (NEGATIVE); UGLUCOSE NEGATIVE (NEGATIVE); UROBILINOGEN,URINE 0.2 EU/dL (0.2 - 1)
[2023-05-14 04:35] VITALS: BP 140/70; PULSE 88; RESP 18; TEMP 98.3; O2SAT 97
== END 2023-05-14 04:31 | disposition home or self-care (01) ==
LOC: MED 01:24
DX: R10.32 Left lower quadrant pain (principal); J44.9 Chronic obstructive pulmonary disease, unspecified; E11.9 Type 2 diabetes mellitus without complications; I10 Essential (primary) hypertension; E66.9 Obesity, unspecified; Z79.82 Long term (current) use of aspirin; Z79.899 Other long term (current) drug therapy; Z88.5 Allergy status to narcotic agent
CPT/HCPCS: 36415; 80048; 80076; 81003; 82150; 83690; 85025; 99284

== ENCOUNTER 2023-05-20 00:30 | Emergency (ER) | payer OTHER ==
[~2023-05-20] VITALS: Ht 165.1 cm; Wt 68.0 kg
[2023-05-20 00:58] VITALS: BP 123/83; PULSE 87; RESP 16; TEMP 97.8; O2SAT 98
[2023-05-20] MEDS ORDERED: CELE100C99 PO (02:32)
[2023-05-20] MEDS ORDERED: [UNRECOGNIZED DRUG - CODE] PO (02:33)
[2023-05-20 03:00] VITALS: BP 123/83; PULSE 87; RESP 16; TEMP 97.8; O2SAT 98
== END 2023-05-20 03:00 | disposition home or self-care (01) ==
LOC: MED 00:30
DX: M13.872 Other specified arthritis, left ankle and foot (principal); M13.871 Other specified arthritis, right ankle and foot; M13.862 Other specified arthritis, left knee; M13.861 Other specified arthritis, right knee; M13.842 Other specified arthritis, left hand; M13.841 Other specified arthritis, right hand; I11.9 Hypertensive heart disease without heart failure; E11.9 Type 2 diabetes mellitus without complications; Z79.899 Other long term (current) drug therapy; Z79.4 Long term (current) use of insulin
CPT/HCPCS: 99283

== ENCOUNTER 2023-05-24 20:31 | Emergency (ER) | payer OTHER ==
[~2023-05-24] VITALS: Ht 165.1 cm; Wt 89.8 kg
[~2023-05-24 20:31] MED LIST changes: +CELE100C99 PO; +[UNRECOGNIZED DRUG - CODE] PO
[2023-05-24 22:04] VITALS: BP 151/81; PULSE 88; RESP 16; TEMP 97.7; O2SAT 100
[2023-05-24] MEDS: DEXAMETHASONE 4 MG/ML VIAL PO ONE (23:09)
[2023-05-24] MEDS: ACETAMINOPHEN EXTRA STRENGTH 500 MG TAB PO ONE (23:09)
[2023-05-24 23:53] LABS: FLU A ANTIGEN negative (NEGATIVE); FLU B ANTIGEN NEGATIVE (NEGATIVE)
[2023-05-25] MEDS ORDERED: IBUP-1842 PO (00:32)
[2023-05-25] MEDS ORDERED: BENZ-300 PO (00:33)
== END 2023-05-25 00:37 | disposition home or self-care (01) ==
LOC: MED 20:31
DX: J03.91 Acute recurrent tonsillitis, unspecified (principal); Z20.822 Contact with and (suspected) exposure to COVID-19; E11.9 Type 2 diabetes mellitus without complications; I11.9 Hypertensive heart disease without heart failure; Z79.4 Long term (current) use of insulin; Z79.899 Other long term (current) drug therapy
CPT/HCPCS: 87081; 87426; 87804; 99283; J1100

== ENCOUNTER 2023-06-05 21:30 | Emergency (ER) | payer OTHER ==
[~2023-06-05] VITALS: Ht 165.1 cm; Wt 90.7 kg
[~2023-06-05 21:30] MED LIST changes: +BENZ-300 PO; +IBUP-1842 PO
[2023-06-05 21:40] VITALS: BP 118/79; PULSE 89; RESP 16; TEMP 98.7; O2SAT 96
[2023-06-05 23:42] LABS: BASOPHILS # (AUTO) 0.1 K/uL (0.00-0.22); BASOPHILS % (AUTO) 0.9 % (0.0-2.0); EOSINOPHILS # (AUTO) 0.2 K/uL (0-0.4); EOSINOPHILS % (AUTO) 2.5 % (0.0-4.0); HEMATOCRIT 37.2 % (36-48); HEMOGLOBIN 12.6 g/dL (12.0-16.0); LYMPHOCYTES % (AUTO) 30.1 % (20.5-51.1); MEAN CORPUSCULAR HEMOGLOBIN 30 pg (27-31); MEAN CORPUSCULAR HGB CONC 34 g/dL (33-37); MEAN CORPUSCULAR VOLUME 89.2 fL (80-94); MONOCYTES # (AUTO) 0.7 K/uL (0.8-1.0); MONOCYTES % (AUTO) 6.9 % (1.7-9.3); NEUTROPHILS # (AUTO) 5.9 K/uL (1.8-7.7); NEUTROPHILS % (AUTO) 59.6 % (42.2-75.2); PLATELET COUNT (AUTO) 261 K/uL (140-450); RED BLOOD CELL COUNT(AUTO) 4.18 MIL/uL (4.20-5.40); WHITE BLOOD COUNT (AUTO) 9.9 K/uL (4.8-10.8)
[2023-06-05 23:53] LABS: ANION GAP 12.2 (8-16); CALCIUM 8.6 mg/dL (8.5-10.1); CARBON DIOXIDE 26.3 mmol/L (21-32); CREATININE 0.9 mg/dL (0.6-1.3); POTASSIUM 3.5 mmol/L (3.5-5.1)
[2023-06-06] MEDS ORDERED: FURO-572 PO (01:45)
[2023-06-06 03:03] VITALS: BP 111/78; PULSE 71; RESP 16; TEMP 36.44736; O2SAT 97
== END 2023-06-06 03:04 | disposition home or self-care (01) ==
LOC: MED 21:30
DX: R06.02 Shortness of breath (principal); G47.30 Sleep apnea, unspecified; R60.9 Edema, unspecified; J45.909 Unspecified asthma, uncomplicated; J44.9 Chronic obstructive pulmonary disease, unspecified; I11.9 Hypertensive heart disease without heart failure; Z79.899 Other long term (current) drug therapy
CPT/HCPCS: 36415; 71045; 80048; 83880; 84484; 85025; 93005; 99285; Q0092

== ENCOUNTER 2023-10-23 01:47 | Emergency (ER) | payer OTHER ==
[~2023-10-23] VITALS: Ht 160 cm; Wt 90.3 kg
[~2023-10-23 01:47] MED LIST changes: +FURO-572 PO; +HYDR-5071 PO; -HYDR-5191 PO
[2023-10-23 02:00] VITALS: BP 153/84; PULSE 90; RESP 16; TEMP 96.7; O2SAT 100
[2023-10-23 03:34] LABS: BASOPHILS # (AUTO) 0.2 K/uL (0.00-0.22); BASOPHILS % (AUTO) 1.9 % (0.0-2.0); EOSINOPHILS # (AUTO) 0.3 K/uL (0-0.4); EOSINOPHILS % (AUTO) 2.9 % (0.0-4.0); HEMATOCRIT 38.9 % (36-48); HEMOGLOBIN 13.4 g/dL (12.0-16.0); LYMPHOCYTES # (AUTO) 3.6 K/uL (2.5-16.5); LYMPHOCYTES % (AUTO) 38.5 % (20.5-51.1); MEAN CORPUSCULAR HEMOGLOBIN 30 pg (27-31); MEAN CORPUSCULAR HGB CONC 34 g/dL (33-37); MEAN CORPUSCULAR VOLUME 87.6 fL (80-94); MONOCYTES # (AUTO) 0.8 K/uL (0.8-1.0); MONOCYTES % (AUTO) 8.2 % (1.7-9.3); NEUTROPHILS # (AUTO) 4.5 K/uL (1.8-7.7); NEUTROPHILS % (AUTO) 48.5 % (42.2-75.2); PLATELET COUNT (AUTO) 272 K/uL (140-450); RED BLOOD CELL COUNT(AUTO) 4.45 MIL/uL (4.20-5.40); WHITE BLOOD COUNT (AUTO) 9.3 K/uL (4.8-10.8)
[2023-10-23 03:52] LABS: ALANINE AMINOTRANSFERASE 30 U/L (12-78); ALBUMIN 3.5 g/dL (3.4-5.0); ALKALINE PHOSPHATASE 125 U/L (50-136); ANION GAP 11.4 (8-16); ASPARTATE AMINOTRANSFERASE 12 U/L (15-37); CALCIUM 8.5 mg/dL (8.5-10.1); CARBON DIOXIDE 27.3 mmol/L (21-32); CHLORIDE 103 mmol/L (98-107); CREATININE 0.8 mg/dL (0.6-1.3); GFR ARICAN-AMERICAN 94 mL/min (>90); GFR NON ARICAN-AMERICAN 78 mL/min (>90); GLUCOSE 153 mg/dL (74-106); LIPASE 30 U/L (16-77); POTASSIUM 3.7 mmol/L (3.5-5.1); SODIUM SERUM 138 mmol/L (136-145); TOTAL BILIRUBIN 0.3 mg/dL (0.0-1.0); TOTAL PROTEIN, SERUM 7.4 g/dL (6.4-8.2); UREA NITROGEN, BLOOD 14 mg/dL (7-18)
[2023-10-23] MEDS ORDERED: IBUP-1842 PO (06:55)
== END 2023-10-23 07:00 | disposition home or self-care (01) ==
LOC: MED 01:47
DX: J06.9 Acute upper respiratory infection, unspecified (principal); J44.9 Chronic obstructive pulmonary disease, unspecified; E11.9 Type 2 diabetes mellitus without complications; I10 Essential (primary) hypertension; Z79.1 Long term (current) use of non-steroidal anti-inflammatories (NSAID); Z79.2 Long term (current) use of antibiotics; Z79.899 Other long term (current) drug therapy; Z88.5 Allergy status to narcotic agent
CPT/HCPCS: 36415; 80053; 83690; 84484; 85025; 93005; 99284

== ENCOUNTER 2023-10-25 23:35 | Emergency (ER) | payer OTHER ==
[~2023-10-25] VITALS: Ht 165.1 cm; Wt 94.3 kg
[2023-10-25 23:44] VITALS: BP 139/82; PULSE 81; RESP 18; TEMP 98; O2SAT 99
[2023-10-26 00:57] LABS: APPEARANCE,URINE CLEAR (CLEAR); BILIRUBIN,URINE NEGATIVE (NEGATIVE); BLOOD, URINE NEGATIVE (NEGATIVE); COLOR,URINE YELLOW (YELLOW); LEUKOCYTE ESTERASE ,URINE NEGATIVE (NEGATIVE); NITRITE, URINE NEGATIVE (NEGATIVE); PROTEIN,URINE NEGATIVE (NEGATIVE); UGLUCOSE NEGATIVE (NEGATIVE); UROBILINOGEN,URINE 0.2 EU/dL (0.2 - 1)
[2023-10-26 01:25] LABS: BASOPHILS # (AUTO) 0.1 K/uL (0.00-0.22); BASOPHILS % (AUTO) 0.9 % (0.0-2.0); EOSINOPHILS # (AUTO) 0.2 K/uL (0-0.4); EOSINOPHILS % (AUTO) 2.6 % (0.0-4.0); HEMATOCRIT 36.7 % (36-48); HEMOGLOBIN 12.5 g/dL (12.0-16.0); LYMPHOCYTES # (AUTO) 3.3 K/uL (2.5-16.5); LYMPHOCYTES % (AUTO) 38.3 % (20.5-51.1); MEAN CORPUSCULAR HEMOGLOBIN 30 pg (27-31); MEAN CORPUSCULAR HGB CONC 34 g/dL (33-37); MONOCYTES # (AUTO) 0.7 K/uL (0.8-1.0); MONOCYTES % (AUTO) 7.7 % (1.7-9.3); NEUTROPHILS # (AUTO) 4.4 K/uL (1.8-7.7); NEUTROPHILS % (AUTO) 50.5 % (42.2-75.2); PLATELET COUNT (AUTO) 245 K/uL (140-450); RED BLOOD CELL COUNT(AUTO) 4.17 MIL/uL (4.20-5.40); RED CELL DISTRIBUTION WIDTH 14.8 % (11.6-13.7); WHITE BLOOD COUNT (AUTO) 8.7 K/uL (4.8-10.8)
[2023-10-26 01:51] VITALS: O2SAT 99
[2023-10-26 01:51] LABS: ALBUMIN 3.4 g/dL (3.4-5.0); BILIRUBIN,DIRECT 0.1 mg/dL (0.0-0.3); TOTAL BILIRUBIN 0.3 mg/dL (0.0-1.0); TOTAL PROTEIN, SERUM 7.1 g/dL (6.4-8.2)
[2023-10-26 01:52] LABS: ANION GAP 10.4 (8-16); CALCIUM 8.6 mg/dL (8.5-10.1); CARBON DIOXIDE 28.2 mmol/L (21-32); CREATININE 0.9 mg/dL (0.6-1.3); POTASSIUM 3.6 mmol/L (3.5-5.1)
[2023-10-26] MEDS ORDERED: METR-435 PO (02:37)
[2023-10-26 02:41] VITALS: BP 139/82; PULSE 81; RESP 18; TEMP 98; O2SAT 99
== END 2023-10-26 02:41 | disposition home or self-care (01) ==
LOC: MED 23:35
DX: N76.0 Acute vaginitis (principal); B96.89 Other specified bacterial agents as the cause of diseases classified elsewhere; J44.9 Chronic obstructive pulmonary disease, unspecified; E11.9 Type 2 diabetes mellitus without complications; I10 Essential (primary) hypertension; Z79.899 Other long term (current) drug therapy; Z79.1 Long term (current) use of non-steroidal anti-inflammatories (NSAID); Z79.2 Long term (current) use of antibiotics; Z88.5 Allergy status to narcotic agent
CPT/HCPCS: 36415; 80048; 80076; 81003; 85025; 87040; 87210; 99284

== ENCOUNTER 2023-11-03 17:47 | Emergency (ER) | payer OTHER ==
[~2023-11-03] VITALS: Ht 165.1 cm; Wt 95.0 kg
[~2023-11-03 17:47] MED LIST changes: +METR-435 PO
[2023-11-03 17:52] VITALS: BP 150/84; PULSE 93; RESP 20; TEMP 97.9; O2SAT 97
[2023-11-03] MEDS ORDERED: FLONAS NS (18:27)
[2023-11-03] MEDS ORDERED: PRED20TA5 PO (18:27)
[2023-11-03] MEDS: DEXAMETHASONE 10 MG/ML VIAL IM ONE (18:28)
[2023-11-03] MEDS: KETOROLAC 30 MG/ML VIAL IM ONE (18:31)
== END 2023-11-03 18:20 | disposition home or self-care (01) ==
LOC: MED 17:47
DX: J30.9 Allergic rhinitis, unspecified (principal); I11.0 Hypertensive heart disease with heart failure; I50.9 Heart failure, unspecified; J44.9 Chronic obstructive pulmonary disease, unspecified; E11.9 Type 2 diabetes mellitus without complications; Z79.899 Other long term (current) drug therapy; Z79.82 Long term (current) use of aspirin; Z88.5 Allergy status to narcotic agent
CPT/HCPCS: 96372; 99284; J1100; J1885

== ENCOUNTER 2023-11-21 19:59 | Emergency (ER) | payer OTHER ==
[~2023-11-21] VITALS: Ht 165.1 cm; Wt 93.0 kg
[~2023-11-21 19:59] MED LIST changes: -ACET-10509 PO; +ACET500T99 PO; +FLONAS NS; +PRED20TA5 PO
[2023-11-21 20:06] VITALS: BP 134/86; PULSE 85; RESP 18; TEMP 98.5; O2SAT 97
[2023-11-21 20:13] VITALS: BP 134/86; PULSE 85; RESP 18; TEMP 98.5
[2023-11-21 20:38] VITALS: O2SAT 98
[2023-11-21] MEDS ORDERED: DICYCLOMINE HCL LIQUID 10 MG/5 ML UDC ONE (20:45)
[2023-11-21] MEDS ORDERED: ALUMINUM HYD/MAG/SIMETHICONE 30 ML UDC ONE (20:45)
[2023-11-21] MEDS: KETOROLAC 30 MG/ML VIAL IM ONE (20:54)
[2023-11-21] MEDS: DICYCLOMINE HCL LIQUID 20 MG, ALUMINUM HYD/MAG/SIMETHICONE 30 ML, LIDOCAINE VISCOUS 2% ... PO ONE (20:54)
[2023-11-21 20:57] LABS: APPEARANCE,URINE CLEAR (CLEAR); BILIRUBIN,URINE NEGATIVE (NEGATIVE); BLOOD, URINE NEGATIVE (NEGATIVE); COLOR,URINE YELLOW (YELLOW); LEUKOCYTE ESTERASE ,URINE NEGATIVE (NEGATIVE); NITRITE, URINE NEGATIVE (NEGATIVE); PH,URINE 7.5 (5.0-9.0); PROTEIN,URINE NEGATIVE (NEGATIVE); UGLUCOSE NEGATIVE (NEGATIVE); UROBILINOGEN,URINE 0.2 EU/dL (0.2 - 1)
[2023-11-21 21:15] VITALS: O2SAT 98
[2023-11-21 21:18] LABS: BASOPHILS # (AUTO) 0.1 K/uL (0.00-0.22); BASOPHILS % (AUTO) 0.9 % (0.0-2.0); EOSINOPHILS # (AUTO) 0.2 K/uL (0-0.4); EOSINOPHILS % (AUTO) 1.8 % (0.0-4.0); HEMATOCRIT 40.6 % (36-48); HEMOGLOBIN 13.5 g/dL (12.0-16.0); LYMPHOCYTES % (AUTO) 24.1 % (20.5-51.1); MEAN CORPUSCULAR HEMOGLOBIN 29 pg (27-31); MEAN CORPUSCULAR HGB CONC 33 g/dL (33-37); MEAN CORPUSCULAR VOLUME 88.2 fL (80-94); MONOCYTES # (AUTO) 0.9 K/uL (0.8-1.0); MONOCYTES % (AUTO) 7.1 % (1.7-9.3); NEUTROPHILS # (AUTO) 8.2 K/uL (1.8-7.7); NEUTROPHILS % (AUTO) 66.1 % (42.2-75.2); PLATELET COUNT (AUTO) 268 K/uL (140-450); RED BLOOD CELL COUNT(AUTO) 4.61 MIL/uL (4.20-5.40); RED CELL DISTRIBUTION WIDTH 14.2 % (11.6-13.7); WHITE BLOOD COUNT (AUTO) 12.4 K/uL (4.8-10.8)
[2023-11-21 21:32] LABS: ALBUMIN 3.7 g/dL (3.4-5.0); ANION GAP 14.4 (8-16); CALCIUM 9.6 mg/dL (8.5-10.1); CARBON DIOXIDE 27.1 mmol/L (21-32); POTASSIUM 3.5 mmol/L (3.5-5.1); TOTAL BILIRUBIN 0.4 mg/dL (0.0-1.0); TOTAL PROTEIN, SERUM 7.9 g/dL (6.4-8.2)
[2023-11-21] MEDS ORDERED: MAG355OR2 PO (22:30)
[2023-11-21] MEDS ORDERED: BEN10 PO (22:30)
== END 2023-11-21 22:42 | disposition home or self-care (01) ==
LOC: MED 19:59
DX: K29.70 Gastritis, unspecified, without bleeding (principal); I11.0 Hypertensive heart disease with heart failure; I50.9 Heart failure, unspecified; E11.9 Type 2 diabetes mellitus without complications; J44.9 Chronic obstructive pulmonary disease, unspecified; Z90.49 Acquired absence of other specified parts of digestive tract; Z98.51 Tubal ligation status; Z98.890 Other specified postprocedural states; Z79.1 Long term (current) use of non-steroidal anti-inflammatories (NSAID); Z79.899 Other long term (current) drug therapy; Z88.5 Allergy status to narcotic agent
CPT/HCPCS: 36415; 80053; 81003; 81025; 83690; 85025; 96372; 99283; J1885